=== PATIENT | male | born 1955 | race Caucasian/White ===

== ENCOUNTER 2020-07-09 00:30 | Emergency (ER) | payer MEDICARE, MEDICAID ==
[2020-07-09] MEDS ORDERED: Aspirin Chewable 81 MG TAB ONE (00:35)
[2020-07-09] MEDS ORDERED: Ondansetron PF 4 MG/2 ML Vial ONE (00:36)
[2020-07-09] MEDS ORDERED: Morphine 4 MG/ML VIAL ONE (00:36)
[2020-07-09 00:52] LABS: #Basophils 0.1 10x3/uL (0.0-0.2); #Eosinphils 0.8 10x3/uL (0.0-0.5); #Monocytes 0.8 10x3/uL (0.0-1.1); #Neutrophils 5.2 10x3/uL (1.5-8.4); %Basophils 0.8 % (0.0-2.0); %Eosinophils 8.6 % (0.0-6.0); %Lymphocytes 29.1 % (18.0-47.0); %Monocytes 7.8 % (0.0-10.0); %Neutrophils 52.8 % (40.0-75.0); Hemoglobin 14.7 g/dL (13.5-17.5); Mean Corpuscular HGB CONC 30.4 g/dL (32.0-36.0); Mean Corpuscular Volume 85.3 fl (81.2-95.1); Mean Platelet Volume 9.9 fl (7.4-10.4); Platelet Count 285 10x3/uL (150-450); RBC Distribution Width 15.8 % (11.5-14.5); Red Blood Cell (RBC) Count 5.66 10x6/uL (4.32-5.72); White Blood Cell (WBC) Count 9.8 10x3/uL (3.5-10.5)
[2020-07-09 01:01] LABS: ALT (SGPT) 27 U/L (8-55); AST (SGOT) 14 U/L (5-34); Alkaline Phosphatase 119 U/L (40-110); Anion Gap 17 mmol/L (10-20); BUN (Urea Nitrogen) 25 mg/dL (8.4-25.7); Bilirubin, Total 0.4 mg/dL (0.2-1.2); Calc. Creatinine Clearance 0 mL/min (70-130); Calcium 9.5 mg/dL (7.8-10.44); Carbon Dioxide 22 mmol/L (23-31); Chloride 104 mmol/L (98-107); Globulin 4.4 g/dL (2.4-3.5); Glucose 217 mg/dL (80-115); Magnesium 2.1 mg/dL (1.6-2.6); Potassium 4.3 mmol/L (3.5-5.1); Protein, Total 8.4 g/dL (5.8-8.1); Sodium 139 mmol/L (136-145)
[2020-07-09 01:24] LABS: CKMB 2.8 ng/mL (0-6.6)
[2020-07-09] MEDS ORDERED: Clopidogrel Bisulfate 75 MG TAB ONE (04:51)
[2020-07-09] MEDS ORDERED: Acetaminophen 500 MG TAB ONE (04:51)
== END 2020-07-09 04:58 | disposition home or self-care (01) ==
LOC: CSHERS 00:30
DX: R07.9 Chest pain, unspecified (principal); G89.29 Other chronic pain; Z76.0 Encounter for issue of repeat prescription; I48.91 Unspecified atrial fibrillation; I12.9 Hypertensive chronic kidney disease with stage 1 through stage 4 chronic kidney disease, or unspecified chronic kidney disease; E11.22 Type 2 diabetes mellitus with diabetic chronic kidney disease; N18.4 Chronic kidney disease, stage 4 (severe); Z79.84 Long term (current) use of oral hypoglycemic drugs; Z79.899 Other long term (current) drug therapy
CPT/HCPCS: 71045; 80053; 82553; 83735; 83880; 84484; 85025; 93005; 96374; 96375; J2270; J2405

== ENCOUNTER 2020-08-17 14:35 | Inpatient (IN) | payer MEDICARE, MEDICAID ==
[2020-08-17 15:01] LABS: #Eosinphils 0.4 10x3/uL (0.0-0.5); #Monocytes 0.4 10x3/uL (0.0-1.1); #Neutrophils 4.2 10x3/uL (1.5-8.4); %Basophils 0.6 % (0.0-2.0); %Eosinophils 5.8 % (0.0-6.0); %Lymphocytes 22.3 % (18.0-47.0); %Monocytes 5.5 % (0.0-10.0); %Neutrophils 64.7 % (40.0-75.0); Hemoglobin 12.9 g/dL (13.5-17.5); Mean Corpuscular HGB CONC 31.3 g/dL (32.0-36.0); Mean Corpuscular Hemoglobin 26.2 pg (27.0-33.0); Mean Corpuscular Volume 83.7 fl (81.2-95.1); Mean Platelet Volume 10.5 fl (7.4-10.4); Platelet Count 209 10x3/uL (150-450); Red Blood Cell (RBC) Count 4.92 10x6/uL (4.32-5.72); White Blood Cell (WBC) Count 6.4 10x3/uL (3.5-10.5)
[2020-08-17 15:15] LABS: ALT (SGPT) 19 U/L (8-55); AST (SGOT) 13 U/L (5-34); Albumin 3.6 g/dL (3.4-4.8); Alkaline Phosphatase 116 U/L (40-110); Anion Gap 15 mmol/L (10-20); BUN (Urea Nitrogen) 15 mg/dL (8.4-25.7); Bilirubin, Total 0.4 mg/dL (0.2-1.2); Calc. Creatinine Clearance 0 mL/min (70-130); Calcium 9.5 mg/dL (7.8-10.44); Carbon Dioxide 18 mmol/L (23-31); Chloride 105 mmol/L (98-107); Globulin 3.9 g/dL (2.4-3.5); Glucose 508 mg/dL (80-115); Lipase 15 U/L (8-78); Potassium 4.1 mmol/L (3.5-5.1); Protein, Total 7.5 g/dL (5.8-8.1); Sodium 134 mmol/L (136-145)
[2020-08-17 15:39] LABS: CKMB 2.5 ng/mL (0-6.6)
[2020-08-17] MEDS ORDERED: Nitroglycerin 2% Ointment 1 INCH/1 GM Packet ONE (16:21)
[2020-08-17] MEDS ORDERED: Dextrose 50% Abboject 50 ML SYRINGE SLOW IVP PRN (16:44)
[2020-08-17] MEDS ORDERED: Dextrose 5% in Water 1,000 ML IV PRN (16:44)
[2020-08-17] MEDS ORDERED: Nitroglycerin 0.4 MG TAB (25 Tab Bottle) SL PRN (16:54)
[2020-08-17] MEDS ORDERED: Insulin Regular 300 UNITS/3 ML VIAL ONE (17:08)
[2020-08-17 18:31] LABS: Troponin I 0.048 ng/mL (< 0.028)
[2020-08-17 20:48] LABS: Hemoglobin A1c 10.5 % (4.0-6.0)
[2020-08-17 21:41] VITALS: BMI 31.2
[2020-08-17 22:19] LABS: Troponin I 0.045 ng/mL (< 0.028)
[2020-08-17] MEDS ORDERED: Apixaban 5 MG TAB PO SCH (23:00)
[2020-08-17] MEDS: Nitroglycerin 2% Ointment 1 INCH/1 GM Packet TOP SCH (23:52)
[2020-08-18] MEDS ORDERED: HYDROcodone/Acetaminophen 5/325 mg Tablet PO SCH (00:15)
[2020-08-18] MEDS: Lactated Ringer's 1,000 ML IV SCH ×2 (00:42→11:15)
[2020-08-18] MEDS: HumaLOG 300 UNITS/3 ML VIAL SC PRN ×4 (00:43→20:48)
[2020-08-18 04:21] LABS: Cardiac Risk 5.2 (Less than 4.5)
[2020-08-18] MEDS: Nitroglycerin 2% Ointment 1 INCH/1 GM Packet TOP SCH ×2 (06:00→14:06)
[2020-08-18] MEDS: Famotidine 20 MG TAB PO SCH (08:42)
[2020-08-18] MEDS: NIFEdipine XL 60 MG TAB PO SCH (08:42)
[2020-08-18] MEDS: Atorvastatin Calcium 40 MG TAB PO SCH (08:43)
[2020-08-18] MEDS: Clopidogrel Bisulfate 75 MG TAB PO SCH (08:43)
[2020-08-18] MEDS: Apixaban 5 MG TAB PO SCH ×2 (08:43→20:36)
[2020-08-18] MEDS: Acetaminophen 325 MG TAB PO PRN ×2 (11:42→20:36)
[2020-08-18] MEDS: Ondansetron PF 4 MG/2 ML Vial IVP PRN (13:53)
[2020-08-18 15:40] LABS: SARS-CoV-2 PCR by NAA Not Detected (NotDetected)
[2020-08-19] MEDS: Lactated Ringer's 1,000 ML IV SCH ×2 (00:14→01:44)
[2020-08-19] MEDS ORDERED: traMADol HCl 50 MG TAB PO SCH (00:15)
[2020-08-19] MEDS ORDERED: Furosemide 20 MG/2 ML VIAL SLOW IVP SCH (01:30)
[2020-08-19 04:22] LABS: #Basophils 0.1 10x3/uL (0.0-0.2); #Eosinphils 0.5 10x3/uL (0.0-0.5); #Monocytes 0.4 10x3/uL (0.0-1.1); #Neutrophils 5.1 10x3/uL (1.5-8.4); %Basophils 0.7 % (0.0-2.0); %Eosinophils 5.7 % (0.0-6.0); %Lymphocytes 23.6 % (18.0-47.0); %Monocytes 4.8 % (0.0-10.0); Hemoglobin 13.1 g/dL (13.5-17.5); Mean Corpuscular HGB CONC 30.5 g/dL (32.0-36.0); Mean Corpuscular Hemoglobin 26.2 pg (27.0-33.0); Mean Platelet Volume 10.2 fl (7.4-10.4); Platelet Count 213 10x3/uL (150-450); RBC Distribution Width 16.5 % (11.5-14.5); White Blood Cell (WBC) Count 8.1 10x3/uL (3.5-10.5)
[2020-08-19 04:32] LABS: Anion Gap 14 mmol/L (10-20); BUN (Urea Nitrogen) 14 mg/dL (8.4-25.7); Calc. Creatinine Clearance 61 mL/min (70-130); Calcium 8.9 mg/dL (7.8-10.44); Carbon Dioxide 17 mmol/L (23-31); Chloride 109 mmol/L (98-107); Glucose 203 mg/dL (80-115); Potassium 3.9 mmol/L (3.5-5.1); Sodium 136 mmol/L (136-145)
[2020-08-19] MEDS: HumaLOG 300 UNITS/3 ML VIAL SC PRN ×4 (06:47→21:29)
[2020-08-19] MEDS: Atorvastatin Calcium 40 MG TAB PO SCH (10:04)
[2020-08-19] MEDS: NIFEdipine XL 60 MG TAB PO SCH (10:04)
[2020-08-19] MEDS: Apixaban 5 MG TAB PO SCH ×2 (10:04→21:28)
[2020-08-19] MEDS: Famotidine 20 MG TAB PO SCH (10:04)
[2020-08-19] MEDS: Clopidogrel Bisulfate 75 MG TAB PO SCH (10:05)
[2020-08-19] MEDS: Acetaminophen 325 MG TAB PO PRN (13:04)
[2020-08-19] MEDS: Ondansetron PF 4 MG/2 ML Vial IVP PRN (13:04)
[2020-08-19] MEDS ORDERED: SUMAtriptan Succinate 25 MG TAB PO SCH (15:45)
[2020-08-20] MEDS: HumaLOG 300 UNITS/3 ML VIAL SC PRN ×4 (04:50→22:34)
[2020-08-20] MEDS: Acetaminophen 325 MG TAB PO PRN (04:59)
[2020-08-20 06:18] LABS: #Eosinphils 0.4 10x3/uL (0.0-0.5); #Monocytes 0.4 10x3/uL (0.0-1.1); #Neutrophils 5.3 10x3/uL (1.5-8.4); %Basophils 0.5 % (0.0-2.0); %Eosinophils 4.7 % (0.0-6.0); %Lymphocytes 18.2 % (18.0-47.0); %Monocytes 5.4 % (0.0-10.0); %Neutrophils 70.1 % (40.0-75.0); Hemoglobin 13.6 g/dL (13.5-17.5); Mean Corpuscular HGB CONC 30.6 g/dL (32.0-36.0); Mean Corpuscular Hemoglobin 25.9 pg (27.0-33.0); Mean Corpuscular Volume 84.8 fl (81.2-95.1); Mean Platelet Volume 10.2 fl (7.4-10.4); Platelet Count 184 10x3/uL (150-450); Red Blood Cell (RBC) Count 5.25 10x6/uL (4.32-5.72); White Blood Cell (WBC) Count 7.6 10x3/uL (3.5-10.5)
[2020-08-20 06:35] LABS: Anion Gap 16 mmol/L (10-20); BUN (Urea Nitrogen) 16 mg/dL (8.4-25.7); Calc. Creatinine Clearance 59 mL/min (70-130); Calcium 8.8 mg/dL (7.8-10.44); Carbon Dioxide 17 mmol/L (23-31); Chloride 109 mmol/L (98-107); Glucose 227 mg/dL (80-115); Sodium 138 mmol/L (136-145)
[2020-08-20] MEDS: Clopidogrel Bisulfate 75 MG TAB PO SCH (09:34)
[2020-08-20] MEDS: NIFEdipine XL 60 MG TAB PO SCH (09:34)
[2020-08-20] MEDS: Apixaban 5 MG TAB PO SCH ×2 (09:34→20:19)
[2020-08-20] MEDS: Atorvastatin Calcium 40 MG TAB PO SCH (09:35)
[2020-08-20] MEDS: Famotidine 20 MG TAB PO SCH (09:35)
[2020-08-21] MEDS: Acetaminophen 325 MG TAB PO PRN (00:16)
[2020-08-21] MEDS: HumaLOG 300 UNITS/3 ML VIAL SC PRN ×2 (06:37→12:32)
[2020-08-21] MEDS: Apixaban 5 MG TAB PO SCH (08:55)
[2020-08-21] MEDS: Atorvastatin Calcium 40 MG TAB PO SCH (08:55)
[2020-08-21] MEDS: Clopidogrel Bisulfate 75 MG TAB PO SCH (08:56)
[2020-08-21] MEDS: Famotidine 20 MG TAB PO SCH (08:56)
[2020-08-21] MEDS: NIFEdipine XL 60 MG TAB PO SCH (08:56)
[2020-08-21 12:22] VITALS: BP 133/82; TEMP 97.5
== END 2020-08-21 13:02 | disposition home or self-care (01) | DRG 313 ==
LOC: CSHERS 14:35 → CSHTELE 20:24 → OBSVTOIN 08-18 16:00
PROVIDERS: ADMIT Student in an Organized Health Care Education/Training Program; ATTEND Family Medicine
DX: R07.9 Chest pain, unspecified (principal); I42.9 Cardiomyopathy, unspecified; Z20.822 Contact with and (suspected) exposure to COVID-19; I48.0 Paroxysmal atrial fibrillation; E78.5 Hyperlipidemia, unspecified; K21.9 Gastro-esophageal reflux disease without esophagitis; G47.33 Obstructive sleep apnea (adult) (pediatric); E66.9 Obesity, unspecified; F41.9 Anxiety disorder, unspecified; F32.9 Major depressive disorder, single episode, unspecified; E11.22 Type 2 diabetes mellitus with diabetic chronic kidney disease; E11.65 Type 2 diabetes mellitus with hyperglycemia; I12.9 Hypertensive chronic kidney disease with stage 1 through stage 4 chronic kidney disease, or unspecified chronic kidney disease; I25.10 Atherosclerotic heart disease of native coronary artery without angina pectoris; G44.40 Drug-induced headache, not elsewhere classified, not intractable; N18.30 Chronic kidney disease, stage 3 unspecified; T46.3X5A Adverse effect of coronary vasodilators, initial encounter; Y92.230 Patient room in hospital as the place of occurrence of the external cause; E87.6 Hypokalemia; K86.89 Other specified diseases of pancreas; Z59.0 Homelessness; Z88.8 Allergy status to other drugs, medicaments and biological substances; Z87.442 Personal history of urinary calculi; Z68.31 Body mass index [BMI] 31.0-31.9, adult; Z79.84 Long term (current) use of oral hypoglycemic drugs; Z79.899 Other long term (current) drug therapy; Z90.49 Acquired absence of other specified parts of digestive tract; Z79.01 Long term (current) use of anticoagulants; Z87.891 Personal history of nicotine dependence; Z91.018 Allergy to other foods
CPT/HCPCS: 36415; 36416; 71045; 74176; 80048; 80053; 80061; 82010; 82553; 83036; 83690; 83880; 84484; 85025; 87635; 93005; 96374; 96375; G0378; J1815; J1940; J2405; J7120; U0003; U0005

== ENCOUNTER 2021-02-11 09:21 | Observation (INO) | payer MEDICARE, MEDICAID ==
[2021-02-11] MEDS ORDERED: Aspirin 325 MG TAB ONE (09:58)
[2021-02-11] MEDS ORDERED: Nitroglycerin 2% Ointment 1 INCH/1 GM Packet ONE (09:58)
[2021-02-11 10:11] LABS: #Basophils 0.1 10x3/uL (0.0-0.2); #Eosinphils 0.4 10x3/uL (0.0-0.5); #Monocytes 0.4 10x3/uL (0.0-1.1); #Neutrophils 4.9 10x3/uL (1.5-8.4); %Eosinophils 5.5 % (0.0-6.0); %Lymphocytes 18.2 % (18.0-47.0); %Monocytes 5.8 % (0.0-10.0); %Neutrophils 68.8 % (40.0-75.0); Hemoglobin 12.5 g/dL (13.5-17.5); Mean Corpuscular HGB CONC 29.7 g/dL (32.0-36.0); Mean Corpuscular Hemoglobin 24.2 pg (27.0-33.0); Mean Corpuscular Volume 81.4 fl (81.2-95.1); Mean Platelet Volume 10.5 fl (7.4-10.4); Platelet Count 201 10x3/uL (150-450); RBC Distribution Width 17.9 % (11.5-14.5); Red Blood Cell (RBC) Count 5.17 10x6/uL (4.32-5.72); White Blood Cell (WBC) Count 7.1 10x3/uL (3.5-10.5)
[2021-02-11 10:30] LABS: ALT (SGPT) 26 U/L (8-55); AST (SGOT) 22 U/L (5-34); Albumin 3.7 g/dL (3.4-4.8); Alkaline Phosphatase 102 U/L (40-110); Anion Gap 18 mmol/L (10-20); BUN (Urea Nitrogen) 25 mg/dL (8.4-25.7); Bilirubin, Total 0.5 mg/dL (0.2-1.2); Calc. Creatinine Clearance 0 mL/min (70-130); Calcium 8.9 mg/dL (7.8-10.44); Carbon Dioxide 10 mmol/L (23-31); Chloride 111 mmol/L (98-107); Glucose 377 mg/dL (80-115); Potassium 3.7 mmol/L (3.5-5.1); Protein, Total 7.7 g/dL (5.8-8.1); Sodium 135 mmol/L (136-145)
[2021-02-11 10:58] LABS: Anisocytosis SLIGHT = 6-15 cells (100X) (0-5/hpf)
[2021-02-11 10:59] LABS: Hypochromia SLIGHT = 6-15 cells (100X) (0-5/hpf); Platelet Morphology Comment Appears Adequate
[2021-02-11 11:34] LABS: Bilirubin Neg (Negative); Blood, Urine 50 (Negative); Clarity Cloudy (Clear); Glucose, Urine (Dipstick) >=1000 mg/dL (Negative); Ketone, Urine Negative (Negative); Leukocyte 500 (Negative); Nitrite Negative (Negative); Protein, Urine (Dipstick) 30 mg/dl (Neg-Trace); Urobilinogen Normal mg/dL (Less than 2)
[2021-02-11 11:43] LABS: WBC/HPF Greater than 50 HPF (0-3)
[2021-02-11 11:45] LABS: RBC/HPF 0-3 HPF (0-3)
[2021-02-11 11:46] LABS: Bacteria/HPF Rare-Few HPF (None Seen); Squamous Epithelial 0-3 HPF (0-3); Yeast-Budding 1+ HPF (None Seen)
[2021-02-11 13:15] LABS: Troponin I 0.038 ng/mL (< 0.028)
[2021-02-11] MEDS ORDERED: Cefepime 1 GM VIAL ONE (13:19)
[2021-02-11] MEDS ORDERED: Nitroglycerin 0.4 MG TAB (25 Tab Bottle) SL PRN (14:07)
[2021-02-11] MEDS ORDERED: HYDROcodone/Acetaminophen 10/325 mg Tablet PO PRN (14:09)
[2021-02-11] MEDS ORDERED: HumaLOG 300 UNITS/3 ML VIAL SC PRN (14:09)
[2021-02-11] MEDS ORDERED: Dextrose 50% Abboject 50 ML SYRINGE SLOW IVP PRN (14:09)
[2021-02-11] MEDS ORDERED: Dextrose 5% in Water 1,000 ML IV PRN (14:09)
[2021-02-11] MEDS ORDERED: Ondansetron PF 4 MG/2 ML Vial IVP PRN (14:09)
[2021-02-11] MEDS ORDERED: Acetaminophen 325 MG TAB PO PRN (14:09)
[2021-02-11] MEDS ORDERED: Lactated Ringer's 1,000 ML IV SCH (14:30)
[2021-02-11] MEDS ORDERED: Sodium Bicarbonate 50 MEQ, Admixture Fee 1 EACH in Sodium Chloride 0.45% 1,000 ML IV SCH (18:00)
[2021-02-11 18:07] VITALS: BMI 25.8
[2021-02-11] MEDS: Lantus 1000 UNITS/10 ML VIAL SC SCH (19:45)
[2021-02-11] MEDS: Apixaban 5 MG TAB PO SCH (19:45)
[2021-02-11] MEDS ORDERED: Morphine 4 MG/ML VIAL SLOW IVP SCH (20:45)
[2021-02-11] MEDS ORDERED: Pantoprazole 40 MG VIAL IVP SCH (20:45)
[2021-02-12 00:55] LABS: SARS-CoV-2 NAA Rapid Test Not Detected (NotDetected)
[2021-02-12 04:55] LABS: #Basophils 0.1 10x3/uL (0.0-0.2); #Eosinphils 0.4 10x3/uL (0.0-0.5); #Monocytes 0.4 10x3/uL (0.0-1.1); #Neutrophils 4.3 10x3/uL (1.5-8.4); %Basophils 0.9 % (0.0-2.0); %Eosinophils 5.9 % (0.0-6.0); %Lymphocytes 20.6 % (18.0-47.0); %Monocytes 5.9 % (0.0-10.0); %Neutrophils 65.9 % (40.0-75.0); Mean Corpuscular HGB CONC 30.1 g/dL (32.0-36.0); Mean Corpuscular Hemoglobin 24.6 pg (27.0-33.0); Mean Corpuscular Volume 81.7 fl (81.2-95.1); Mean Platelet Volume 10.2 fl (7.4-10.4); Platelet Count 189 10x3/uL (150-450); RBC Distribution Width 18.5 % (11.5-14.5); Red Blood Cell (RBC) Count 4.48 10x6/uL (4.32-5.72); White Blood Cell (WBC) Count 6.6 10x3/uL (3.5-10.5)
[2021-02-12 05:09] LABS: Anion Gap 11 mmol/L (10-20); BUN (Urea Nitrogen) 20 mg/dL (8.4-25.7); Calc. Creatinine Clearance 54 mL/min (70-130); Calcium 8.6 mg/dL (7.8-10.44); Carbon Dioxide 19 mmol/L (23-31); Chloride 114 mmol/L (98-107); Glucose 194 mg/dL (80-115); Potassium 3.6 mmol/L (3.5-5.1); Sodium 140 mmol/L (136-145)
[2021-02-12] MEDS ORDERED: Sodium Bicarbonate 100 MEQ, Admixture Fee 1 EACH in Dextrose 5% in Water 1,000 ML IV SCH (08:00)
[2021-02-12] MEDS: Atorvastatin Calcium 40 MG TAB PO SCH (08:46)
[2021-02-12] MEDS: Famotidine 20 MG TAB PO SCH (08:46)
[2021-02-12] MEDS: metFORMIN XR 500 MG TAB PO SCH (08:46)
[2021-02-12] MEDS: Apixaban 5 MG TAB PO SCH ×2 (08:46→19:56)
[2021-02-12] MEDS: Clopidogrel Bisulfate 75 MG TAB PO SCH (08:46)
[2021-02-12] MEDS: Lantus 1000 UNITS/10 ML VIAL SC SCH ×2 (08:46→20:17)
[2021-02-12] MEDS ORDERED: FLU VACC QS2021-22(65YR UP)/PF 240 MCG/0.7 ML SYRINGE IM ONE (09:00)
[2021-02-12 14:33] LABS: Hemoglobin A1c 9.3 % (4.0-6.0)
[2021-02-13 05:07] LABS: ALT (SGPT) 22 U/L (8-55); AST (SGOT) 18 U/L (5-34); Albumin 3.2 g/dL (3.4-4.8); Alkaline Phosphatase 80 U/L (40-110); Anion Gap 12 mmol/L (10-20); BUN (Urea Nitrogen) 21 mg/dL (8.4-25.7); Calc. Creatinine Clearance 51 mL/min (70-130); Calcium 8.4 mg/dL (7.8-10.44); Carbon Dioxide 19 mmol/L (23-31); Cardiac Risk 8.2 (Less than 4.5); Chloride 115 mmol/L (98-107); Cholesterol 164 mg/dl (< 200 Desired); Globulin 3.4 g/dL (2.4-3.5); Glucose 154 mg/dL (80-115); HDL Cholesterol 20 mg/dL (>60 Neg Risk); LDL Cholesterol, Calculated 87 mg/dL; Protein, Total 6.6 g/dL (5.8-8.1); Sodium 142 mmol/L (136-145); Triglycerides 287 mg/dL (Less than 150)
[2021-02-13 05:16] LABS: Bilirubin, Total 0.5 mg/dL (0.2-1.2)
[2021-02-13 06:14] LABS: #Basophils 0.1 10x3/uL (0.0-0.2); #Eosinphils 0.3 10x3/uL (0.0-0.5); #Monocytes 0.5 10x3/uL (0.0-1.1); #Neutrophils 3.7 10x3/uL (1.5-8.4); %Basophils 0.9 % (0.0-2.0); %Eosinophils 5.6 % (0.0-6.0); %Lymphocytes 21.3 % (18.0-47.0); %Monocytes 7.8 % (0.0-10.0); %Neutrophils 63.4 % (40.0-75.0); Hemoglobin 11.3 g/dL (13.5-17.5); Mean Corpuscular HGB CONC 29.7 g/dL (32.0-36.0); Mean Corpuscular Hemoglobin 24.6 pg (27.0-33.0); Mean Corpuscular Volume 82.6 fl (81.2-95.1); Mean Platelet Volume 9.8 fl (7.4-10.4); Platelet Count 186 10x3/uL (150-450); RBC Distribution Width 18.8 % (11.5-14.5); White Blood Cell (WBC) Count 5.9 10x3/uL (3.5-10.5)
[2021-02-13 06:22] LABS: INR-International Normal Ratio 1.1; PTT 27.1 sec (22.0-33.0)
[2021-02-13 06:35] LABS: Anisocytosis SLIGHT = 6-15 cells (100X) (0-5/hpf); Polychromasia SLIGHT = 2-3 cells (100X) (0-2/hpf)
[2021-02-13 06:36] LABS: Platelet Morphology Comment Appears Adequate
[2021-02-13] MEDS: Apixaban 5 MG TAB PO SCH (07:26)
[2021-02-13] MEDS: metFORMIN XR 500 MG TAB PO SCH (07:26)
[2021-02-13] MEDS: Lantus 1000 UNITS/10 ML VIAL SC SCH (07:26)
[2021-02-13] MEDS: Famotidine 20 MG TAB PO SCH (07:40)
[2021-02-13] MEDS: Clopidogrel Bisulfate 75 MG TAB PO SCH (07:40)
[2021-02-13] MEDS: Atorvastatin Calcium 40 MG TAB PO SCH (07:40)
[2021-02-13] MEDS: Communication Order-Pharmacy FS SCH ×2 (07:42→14:58)
[2021-02-13] MEDS ORDERED: Lidocaine 1% PF 5 ML VIAL ONE (07:50)
[2021-02-13] MEDS ORDERED: Heparin 10,000 UNITS/ 10 ML VIAL ONE (07:51)
[2021-02-13] MEDS ORDERED: Nitroglycerin 50 MG/250 ML BOT 250 ML ONE (07:51)
[2021-02-13] MEDS ORDERED: Verapamil 5 MG/2 ML VIAL ONE (07:51)
[2021-02-13] MEDS ORDERED: Adenosine 6 MG/2 ML VIAL ONE (07:51)
[2021-02-13] MEDS ORDERED: Bivalirudin 250 MG VIAL ONE (07:52)
[2021-02-13] MEDS ORDERED: Sodium Chloride 0.9% 1,000 ML ONE (07:52)
[2021-02-13] MEDS ORDERED: Acetylcysteine 20% 200 MG/ML 30 ML VIAL PO SCH (08:16)
[2021-02-13] MEDS ORDERED: Sodium Chloride 0.9% 1,000 ML IV SCH (08:30)
[2021-02-13] MEDS ORDERED: Acetylcysteine 800 MG/4 ML VIAL ONE (08:35)
[2021-02-13] MEDS ORDERED: Fentanyl 100 MCG/2 ML VIAL ONE (08:43)
[2021-02-13] MEDS ORDERED: Midazolam HCl 5 mg/5 ml Vial ONE (08:43)
[2021-02-13] MEDS ORDERED: Sodium Chloride 0.9% 200 ML IV PRN (09:18)
[2021-02-13] MEDS ORDERED: Acetaminophen/Codeine 30-300mg Tablet PO PRN ×2 (09:18)
[2021-02-13] MEDS ORDERED: Nitroglycerin 0.4 MG TAB (25 Tab Bottle) SL PRN (09:18)
[2021-02-13 15:40] VITALS: BP 130/70; TEMP 98
[2021-02-18] MEDS ORDERED: Furosemide 20 MG TAB PO SCH (09:00)
== END 2021-02-13 15:26 | disposition home or self-care (01) ==
LOC: CSHERS 09:21 → CSHTELE 14:08 → INTOOBSV 14:08 → CSHTELE 17:40 → UNDOADMIN 17:40
PROVIDERS: ADMIT Internal Medicine; ATTEND Physician Assistant Medical
DX: R07.9 Chest pain, unspecified (principal); I42.2 Other hypertrophic cardiomyopathy; I20.1 Angina pectoris with documented spasm; E11.22 Type 2 diabetes mellitus with diabetic chronic kidney disease; I12.9 Hypertensive chronic kidney disease with stage 1 through stage 4 chronic kidney disease, or unspecified chronic kidney disease; N18.30 Chronic kidney disease, stage 3 unspecified; Z79.899 Other long term (current) drug therapy; I48.91 Unspecified atrial fibrillation; E66.9 Obesity, unspecified; E78.5 Hyperlipidemia, unspecified; G47.33 Obstructive sleep apnea (adult) (pediatric); Z87.891 Personal history of nicotine dependence; Z79.84 Long term (current) use of oral hypoglycemic drugs; Z90.49 Acquired absence of other specified parts of digestive tract; I48.0 Paroxysmal atrial fibrillation; Z20.822 Contact with and (suspected) exposure to COVID-19
CPT/HCPCS: 71045; 80048; 80053 ×2; 80061; 82962 ×3; 83036; 84484 ×3; 85025 ×3; 85379; 85610; 85730; 87086; 93005; 93458; 94760 ×2; 96374; 96375; 99285; G0378 ×4; U0002; 36415; 36416; 81003; 81015; 93010; 99152; C9113; J0132; J0153; J0583; J0692; J1644; J1815; J2250; J2270; J3010; J7050; J7120

== ENCOUNTER 2021-04-07 21:56 | Observation (INO) | payer MEDICARE, MEDICAID ==
[2021-04-07 22:41] LABS: #Basophils 0.1 10x3/uL (0.0-0.2); #Eosinphils 0.4 10x3/uL (0.0-0.5); #Monocytes 0.4 10x3/uL (0.0-1.1); #Neutrophils 4.1 10x3/uL (1.5-8.4); %Basophils 0.8 % (0.0-2.0); %Eosinophils 5.6 % (0.0-6.0); %Monocytes 5.9 % (0.0-10.0); %Neutrophils 63.1 % (40.0-75.0); Hemoglobin 11.9 g/dL (13.5-17.5); Mean Corpuscular HGB CONC 30.6 g/dL (32.0-36.0); Mean Corpuscular Volume 81.7 fl (81.2-95.1); Mean Platelet Volume 10.2 fl (7.4-10.4); Platelet Count 216 10x3/uL (150-450); RBC Distribution Width 16.4 % (11.5-14.5); Red Blood Cell (RBC) Count 4.76 10x6/uL (4.32-5.72); White Blood Cell (WBC) Count 6.5 10x3/uL (3.5-10.5)
[2021-04-07 22:57] LABS: ALT (SGPT) 18 U/L (8-55); AST (SGOT) 10 U/L (5-34); Albumin 3.5 g/dL (3.4-4.8); Alkaline Phosphatase 146 U/L (40-110); Anion Gap 14 mmol/L (10-20); BUN (Urea Nitrogen) 17 mg/dL (8.4-25.7); Bilirubin, Total 0.2 mg/dL (0.2-1.2); Calc. Creatinine Clearance 0 mL/min (70-130); Calcium 9.1 mg/dL (7.8-10.44); Carbon Dioxide 20 mmol/L (23-31); Chloride 106 mmol/L (98-107); Globulin 4.2 g/dL (2.4-3.5); Magnesium 1.8 mg/dL (1.6-2.6); Potassium 4.2 mmol/L (3.5-5.1); Protein, Total 7.7 g/dL (5.8-8.1); Sodium 136 mmol/L (136-145)
[2021-04-07 23:11] LABS: Glucose 622 mg/dL (80-115)
[2021-04-07 23:20] LABS: CKMB 4.4 ng/mL (0-6.6)
[2021-04-08] MEDS ORDERED: Insulin Regular 300 UNITS/3 ML VIAL ONE (00:41)
[2021-04-08] MEDS ORDERED: Aspirin 325 MG TAB ONE (00:41)
[2021-04-08 01:01] LABS: Troponin I 0.044 ng/mL (< 0.028)
[2021-04-08] MEDS ORDERED: Nitroglycerin 2% Ointment 1 INCH/1 GM Packet ONE (01:32)
[2021-04-08] MEDS ORDERED: HYDROcodone/Acetaminophen 5/325 mg Tablet PO PRN (01:57)
[2021-04-08] MEDS ORDERED: Senokot S 8.6-50 MG TAB PO PRN (01:57)
[2021-04-08] MEDS ORDERED: Ondansetron PF 4 MG/2 ML Vial IVP PRN (01:57)
[2021-04-08] MEDS ORDERED: Calcium Carbonate 500 MG ChewTAB PO PRN (01:57)
[2021-04-08] MEDS ORDERED: Dextrose 50% Abboject 50 ML SYRINGE SLOW IVP PRN (01:57)
[2021-04-08] MEDS ORDERED: Zolpidem Tartrate 5 MG TAB PO PRN (01:57)
[2021-04-08] MEDS ORDERED: Acetaminophen 325 MG TAB PO PRN (01:57)
[2021-04-08] MEDS ORDERED: Nitroglycerin 0.4 MG TAB (25 Tab Bottle) SL PRN (01:57)
[2021-04-08] MEDS ORDERED: Dextrose 5% in Water 1,000 ML IV PRN (01:57)
[2021-04-08 04:25] LABS: SARS-CoV-2 NAA Rapid Test Not Detected (NotDetected)
[2021-04-08 04:37] VITALS: BMI 31.3
[2021-04-08 06:07] LABS: Cardiac Risk 6.5 (Less than 4.5)
[2021-04-08] MEDS ORDERED: Nitroglycerin 0.4 MG TAB (25 Tab Bottle) SL SCH (07:00)
[2021-04-08] MEDS ORDERED: Calcium Carbonate 500 MG ChewTAB PO SCH (07:00)
[2021-04-08 09:52] LABS: Anion Gap 12 mmol/L (10-20); BUN (Urea Nitrogen) 19 mg/dL (8.4-25.7); Calc. Creatinine Clearance 58 mL/min (70-130); Calcium 9.1 mg/dL (7.8-10.44); Carbon Dioxide 22 mmol/L (23-31); Chloride 110 mmol/L (98-107); Glucose 287 mg/dL (80-115); Potassium 3.9 mmol/L (3.5-5.1); Sodium 140 mmol/L (136-145)
[2021-04-08 09:56] LABS: Troponin I 0.044 ng/mL (< 0.028)
[2021-04-08] MEDS ORDERED: Morphine 4 MG/ML VIAL SLOW IVP SCH (10:15)
[2021-04-08] MEDS: Clopidogrel Bisulfate 75 MG TAB PO SCH (10:35)
[2021-04-08] MEDS: Apixaban 5 MG TAB PO SCH ×2 (10:35→20:46)
[2021-04-08] MEDS: Atorvastatin Calcium 40 MG TAB PO SCH (10:35)
[2021-04-08] MEDS: Lantus 1000 UNITS/10 ML VIAL SC SCH ×2 (10:35→20:45)
[2021-04-08] MEDS: metFORMIN 500 MG TAB PO SCH ×2 (10:36→20:46)
[2021-04-08 12:30] LABS: Hemoglobin A1c 10.3 % (4.0-6.0)
[2021-04-08] MEDS: HumaLOG 300 UNITS/3 ML VIAL SC PRN ×2 (12:50→17:15)
[2021-04-08 13:01] LABS: CKMB 4.6 ng/mL (0-6.6)
[2021-04-09] MEDS: Atorvastatin Calcium 40 MG TAB PO SCH (09:40)
[2021-04-09] MEDS: Apixaban 5 MG TAB PO SCH (09:41)
[2021-04-09] MEDS: Lantus 1000 UNITS/10 ML VIAL SC SCH (09:41)
[2021-04-09] MEDS: Clopidogrel Bisulfate 75 MG TAB PO SCH (09:41)
[2021-04-09] MEDS: metFORMIN 500 MG TAB PO SCH (09:41)
[2021-04-09 12:34] VITALS: BP 135/74; TEMP 97.5
[2021-04-09] MEDS: HumaLOG 300 UNITS/3 ML VIAL SC PRN (13:22)
== END 2021-04-09 14:15 | disposition home or self-care (01) ==
LOC: CSHERS 21:56 → CSHTELE 04-08 04:18
PROVIDERS: ADMIT Student in an Organized Health Care Education/Training Program; ATTEND Nurse Practitioner Family
DX: I25.111 Atherosclerotic heart disease of native coronary artery with angina pectoris with documented spasm (principal); R77.8 Other specified abnormalities of plasma proteins; E11.22 Type 2 diabetes mellitus with diabetic chronic kidney disease; I12.9 Hypertensive chronic kidney disease with stage 1 through stage 4 chronic kidney disease, or unspecified chronic kidney disease; N18.30 Chronic kidney disease, stage 3 unspecified; E78.5 Hyperlipidemia, unspecified; Z79.899 Other long term (current) drug therapy; Z79.01 Long term (current) use of anticoagulants; I48.0 Paroxysmal atrial fibrillation; Z79.4 Long term (current) use of insulin; I42.2 Other hypertrophic cardiomyopathy; Z87.891 Personal history of nicotine dependence; Q24.5 Malformation of coronary vessels; Z79.02 Long term (current) use of antithrombotics/antiplatelets; Z20.822 Contact with and (suspected) exposure to COVID-19
CPT/HCPCS: 71045; 80048; 80053; 80061; 82553 ×2; 82962 ×2; 83036; 83735; 84484 ×3; 85025; 93005; 96374; 99285; G0378 ×3; U0002; 36415; 36416; J1815; J2270

== ENCOUNTER 2021-04-21 17:32 | Emergency (ER) | payer MEDICARE, OTHER ==
[2021-04-21 18:44] LABS: #Eosinphils 0.3 10x3/uL (0.0-0.5); #Monocytes 0.5 10x3/uL (0.0-1.1); #Neutrophils 3.4 10x3/uL (1.5-8.4); %Basophils 0.7 % (0.0-2.0); %Eosinophils 4.9 % (0.0-6.0); %Lymphocytes 27.1 % (18.0-47.0); %Monocytes 7.8 % (0.0-10.0); %Neutrophils 58.8 % (40.0-75.0); Mean Corpuscular HGB CONC 28.7 g/dL (32.0-36.0); Mean Corpuscular Hemoglobin 24.7 pg (27.0-33.0); Mean Corpuscular Volume 85.9 fl (81.2-95.1); Platelet Count 217 10x3/uL (150-450); RBC Distribution Width 16.4 % (11.5-14.5); Red Blood Cell (RBC) Count 4.05 10x6/uL (4.32-5.72); White Blood Cell (WBC) Count 5.8 10x3/uL (3.5-10.5)
[2021-04-21] MEDS ORDERED: Nitroglycerin 2% Ointment 1 INCH/1 GM Packet ONE (18:52)
[2021-04-21] MEDS ORDERED: Ketorolac Tromethamine 30 MG/ML VIAL ONE (18:53)
[2021-04-21 18:58] LABS: ALT (SGPT) 17 U/L (8-55); AST (SGOT) 15 U/L (5-34); Albumin 3.4 g/dL (3.4-4.8); Alkaline Phosphatase 115 U/L (40-110); Anion Gap 12 mmol/L (10-20); BUN (Urea Nitrogen) 17 mg/dL (8.4-25.7); Bilirubin, Total 0.4 mg/dL (0.2-1.2); Calc. Creatinine Clearance 0 mL/min (70-130); Calcium 8.6 mg/dL (7.8-10.44); Carbon Dioxide 20 mmol/L (23-31); Chloride 114 mmol/L (98-107); Globulin 3.5 g/dL (2.4-3.5); Glucose 118 mg/dL (80-115); Potassium 3.9 mmol/L (3.5-5.1); Protein, Total 6.9 g/dL (5.8-8.1); Sodium 142 mmol/L (136-145)
[2021-04-21 19:03] LABS: Anisocytosis SLIGHT = 6-15 cells (100X) (0-5/hpf); Hypochromia SLIGHT = 6-15 cells (100X) (0-5/hpf); Ovalocytes SLIGHT = 2-5 cells (100X) (0-1/hpf); Platelet Morphology Comment Appears Adequate
[2021-04-21 19:34] LABS: CKMB 3.2 ng/mL (0-6.6)
[2021-04-21 21:46] LABS: Troponin I 0.953 ng/mL (< 0.028)
== END 2021-04-21 22:12 | disposition home or self-care (01) ==
LOC: CSHERS 17:32
DX: R07.9 Chest pain, unspecified (principal); I48.91 Unspecified atrial fibrillation; I13.10 Hypertensive heart and chronic kidney disease without heart failure, with stage 1 through stage 4 chronic kidney disease, or unspecified chronic kidney disease; E11.22 Type 2 diabetes mellitus with diabetic chronic kidney disease; N18.30 Chronic kidney disease, stage 3 unspecified; I25.2 Old myocardial infarction; Z87.19 Personal history of other diseases of the digestive system; Z87.891 Personal history of nicotine dependence; Z79.899 Other long term (current) drug therapy
CPT/HCPCS: 71045; 80053; 82553; 83880; 84484; 85025; 93005; 96374; J1885

== ENCOUNTER 2021-05-14 15:18 | Emergency (ER) | payer MEDICARE ==
[2021-05-14 15:56] LABS: #Basophils 0.1 10x3/uL (0.0-0.2); #Eosinphils 0.5 10x3/uL (0.0-0.5); #Monocytes 0.4 10x3/uL (0.0-1.1); #Neutrophils 3.5 10x3/uL (1.5-8.4); %Basophils 0.8 % (0.0-2.0); %Eosinophils 8.3 % (0.0-6.0); %Lymphocytes 26.4 % (18.0-47.0); %Monocytes 6.2 % (0.0-10.0); %Neutrophils 57.6 % (40.0-75.0); Hemoglobin 10.8 g/dL (13.5-17.5); Mean Corpuscular HGB CONC 28.6 g/dL (32.0-36.0); Mean Corpuscular Hemoglobin 23.4 pg (27.0-33.0); Mean Corpuscular Volume 81.8 fl (81.2-95.1); Mean Platelet Volume 9.8 fl (7.4-10.4); Platelet Count 245 10x3/uL (150-450); RBC Distribution Width 15.2 % (11.5-14.5); Red Blood Cell (RBC) Count 4.62 10x6/uL (4.32-5.72); White Blood Cell (WBC) Count 6.1 10x3/uL (3.5-10.5)
[2021-05-14 16:14] LABS: ALT (SGPT) 19 U/L (8-55); AST (SGOT) 12 U/L (5-34); Albumin 3.6 g/dL (3.4-4.8); Alkaline Phosphatase 125 U/L (40-110); Anion Gap 13 mmol/L (10-20); BUN (Urea Nitrogen) 20 mg/dL (8.4-25.7); Bilirubin, Total 0.3 mg/dL (0.2-1.2); Calc. Creatinine Clearance 0 mL/min (70-130); Calcium 8.9 mg/dL (7.8-10.44); Carbon Dioxide 18 mmol/L (23-31); Chloride 110 mmol/L (98-107); Globulin 4.1 g/dL (2.4-3.5); Glucose 342 mg/dL (80-115); Lipase 10 U/L (8-78); Potassium 3.9 mmol/L (3.5-5.1); Protein, Total 7.7 g/dL (5.8-8.1); Sodium 137 mmol/L (136-145)
[2021-05-14 16:22] LABS: Anisocytosis SLIGHT = 6-15 cells (100X) (0-5/hpf); Hypochromia SLIGHT = 6-15 cells (100X) (0-5/hpf); Poikilocytosis SLIGHT = 6-15 cells (100X) (0-5/hpf)
[2021-05-14 16:23] LABS: Platelet Morphology Comment Appears Adequate
[2021-05-14 16:37] LABS: CKMB 3.7 ng/mL (0-6.6)
[2021-05-14] MEDS ORDERED: Aspirin Chewable 81 MG TAB ONE (17:39)
[2021-05-14] MEDS ORDERED: Nitroglycerin 0.4 MG TAB 1 EACH ONE (17:40)
[2021-05-14] MEDS ORDERED: Nitroglycerin 2% Ointment 1 INCH/1 GM Packet ONE ×2 (17:40)
== END 2021-05-14 19:37 | disposition home or self-care (01) ==
LOC: CSHERS 15:18
DX: R07.9 Chest pain, unspecified (principal); I20.9 Angina pectoris, unspecified; I25.2 Old myocardial infarction; I48.91 Unspecified atrial fibrillation; I12.9 Hypertensive chronic kidney disease with stage 1 through stage 4 chronic kidney disease, or unspecified chronic kidney disease; N18.30 Chronic kidney disease, stage 3 unspecified; E11.22 Type 2 diabetes mellitus with diabetic chronic kidney disease
CPT/HCPCS: 71045; 80053; 82553; 83690; 84484; 85025; 93005; 93010

== ENCOUNTER 2021-10-19 19:42 | Observation (INO) | payer OTHER, MEDICAID ==
[2021-10-19] MEDS ORDERED: Dextrose 5% in Water 1,000 ML IV PRN (19:48)
[2021-10-19] MEDS ORDERED: Guaifenesin DM 100-10/5 ML UDCUP PO PRN (19:48)
[2021-10-19] MEDS ORDERED: Dextrose 50% Abboject 50 ML SYRINGE SLOW IVP PRN (19:48)
[2021-10-19] MEDS ORDERED: Zolpidem Tartrate 5 MG TAB PO PRN (19:48)
[2021-10-19] MEDS ORDERED: Senokot S 8.6-50 MG TAB PO PRN (19:48)
[2021-10-19] MEDS ORDERED: HumaLOG 300 UNITS/3 ML VIAL SC PRN (19:48)
[2021-10-19] MEDS ORDERED: Calcium Carbonate 500 MG ChewTAB PO PRN (19:48)
[2021-10-19] MEDS ORDERED: Lactated Ringer's 500 ML IV SCH ×2 (20:00→21:00)
[2021-10-19] MEDS ORDERED: Famotidine/PF 20 mg/2ml Vial SLOW IVP SCH (20:00)
[2021-10-19 20:16] VITALS: BMI 27.6
[2021-10-19] MEDS: Apixaban 5 MG TAB PO SCH (20:51)
[2021-10-19 22:39] LABS: CKMB 4.6 ng/mL (0-6.6)
[2021-10-19 23:43] LABS: Bilirubin Neg (Negative); Blood, Urine 10 (Negative); Clarity Clear (Clear); Glucose, Urine (Dipstick) Normal (Negative); Ketone, Urine Negative (Negative); Leukocyte 25 (Negative); Nitrite Negative (Negative); Protein, Urine (Dipstick) 15 mg/dl (Neg-Trace); Specific Gravity, Urine 1.015 (1.002-1.036); Urobilinogen Normal mg/dL (Less than 2)
[2021-10-19 23:53] LABS: Bacteria/HPF None Seen HPF (None Seen); RBC/HPF 0-3 HPF (0-3); Squamous Epithelial 0-3 HPF (0-3)
[2021-10-20] MEDS: Nitroglycerin 0.4 MG TAB (25 Tab Bottle) SL PRN (00:08)
[2021-10-20] MEDS: Acetaminophen 325 MG TAB PO PRN (00:09)
[2021-10-20 01:38] LABS: SARS-CoV-2 NAA Rapid Test Not Detected (NotDetected)
[2021-10-20] MEDS ORDERED: cefTRIAXone\\ROCEPHIN 1 GM in Sodium Chloride 0.9% 100 ML IVPB SCH (02:00)
[2021-10-20] MEDS: cefTRIAXone\\ROCEPHIN 1 GM in Sodium Chloride 0.9% 100 ML IVPB SCH (05:00)
[2021-10-20 05:41] LABS: Anion Gap 10 mmol/L (10-20); BUN (Urea Nitrogen) 18 mg/dL (8.4-25.7); Calc. Creatinine Clearance 64 mL/min (70-130); Calcium 8.9 mg/dL (7.8-10.44); Carbon Dioxide 18 mmol/L (23-31); Chloride 118 mmol/L (98-107); Estimated GFR 61; Glucose 111 mg/dL (80-115); Potassium 3.6 mmol/L (3.5-5.1); Sodium 142 mmol/L (136-145)
[2021-10-20 06:08] LABS: CKMB 4.5 ng/mL (0-6.6)
[2021-10-20] MEDS: Atorvastatin Calcium 40 MG TAB PO SCH (09:11)
[2021-10-20] MEDS: Amlodipine 5 MG TAB PO SCH (09:11)
[2021-10-20] MEDS: Apixaban 5 MG TAB PO SCH ×2 (09:11→21:44)
[2021-10-20] MEDS: Clopidogrel Bisulfate 75 MG TAB PO SCH (09:11)
[2021-10-20] MEDS: Melatonin 3 MG TAB PO PRN (21:43)
[2021-10-21] MEDS: cefTRIAXone\\ROCEPHIN 1 GM in Sodium Chloride 0.9% 100 ML IVPB SCH (05:09)
[2021-10-21] MEDS: Apixaban 5 MG TAB PO SCH ×2 (09:32→20:51)
[2021-10-21] MEDS: Amlodipine 5 MG TAB PO SCH (09:32)
[2021-10-21] MEDS: Atorvastatin Calcium 40 MG TAB PO SCH (09:32)
[2021-10-21] MEDS: Clopidogrel Bisulfate 75 MG TAB PO SCH (09:33)
[2021-10-21] MEDS: Nitroglycerin 0.4 MG TAB (25 Tab Bottle) SL PRN ×2 (15:27→22:49)
[2021-10-21] MEDS ORDERED: traMADol HCl 50 MG TAB PO SCH (20:00)
[2021-10-21] MEDS: Melatonin 3 MG TAB PO PRN (20:56)
[2021-10-22] MEDS: cefTRIAXone\\ROCEPHIN 1 GM in Sodium Chloride 0.9% 100 ML IVPB SCH (04:17)
[2021-10-22] MEDS: Apixaban 5 MG TAB PO SCH ×2 (10:47→20:15)
[2021-10-22] MEDS: Atorvastatin Calcium 40 MG TAB PO SCH (10:47)
[2021-10-22] MEDS: Clopidogrel Bisulfate 75 MG TAB PO SCH (10:49)
[2021-10-22] MEDS: Amlodipine 5 MG TAB PO SCH (10:49)
[2021-10-22] MEDS: Acetaminophen 325 MG TAB PO PRN (10:50)
[2021-10-23] MEDS: cefTRIAXone\\ROCEPHIN 1 GM in Sodium Chloride 0.9% 100 ML IVPB SCH (04:06)
[2021-10-23] MEDS: Atorvastatin Calcium 40 MG TAB PO SCH (08:30)
[2021-10-23] MEDS: Apixaban 5 MG TAB PO SCH ×2 (08:30→20:47)
[2021-10-23] MEDS: Clopidogrel Bisulfate 75 MG TAB PO SCH (08:30)
[2021-10-23] MEDS: Amlodipine 5 MG TAB PO SCH (08:32)
[2021-10-23] MEDS ORDERED: Ondansetron PF 4 MG/2 ML Vial IVP SCH (20:45)
[2021-10-24] MEDS: Atorvastatin Calcium 40 MG TAB PO SCH (08:40)
[2021-10-24] MEDS: Amlodipine 5 MG TAB PO SCH (08:41)
[2021-10-24] MEDS: Apixaban 5 MG TAB PO SCH (08:41)
[2021-10-24] MEDS: Clopidogrel Bisulfate 75 MG TAB PO SCH (08:44)
[2021-10-24 12:21] VITALS: BP 110/55; TEMP 97.1
== END 2021-10-24 13:53 | disposition home or self-care (01) ==
LOC: CSHTELE 19:42
PROVIDERS: ADMIT Internal Medicine; ATTEND Internal Medicine
DX: R77.8 Other specified abnormalities of plasma proteins (principal); T67.8XXA Other effects of heat and light, initial encounter; R53.1 Weakness; R07.89 Other chest pain; I12.9 Hypertensive chronic kidney disease with stage 1 through stage 4 chronic kidney disease, or unspecified chronic kidney disease; E11.22 Type 2 diabetes mellitus with diabetic chronic kidney disease; N18.32 Chronic kidney disease, stage 3b; N17.9 Acute kidney failure, unspecified; E86.0 Dehydration; E78.2 Mixed hyperlipidemia; Q24.5 Malformation of coronary vessels; E11.65 Type 2 diabetes mellitus with hyperglycemia; E11.10 Type 2 diabetes mellitus with ketoacidosis without coma; I48.0 Paroxysmal atrial fibrillation; I42.2 Other hypertrophic cardiomyopathy; I25.10 Atherosclerotic heart disease of native coronary artery without angina pectoris; K21.9 Gastro-esophageal reflux disease without esophagitis; I25.111 Atherosclerotic heart disease of native coronary artery with angina pectoris with documented spasm; K21.00 Gastro-esophageal reflux disease with esophagitis, without bleeding; Z87.11 Personal history of peptic ulcer disease; Z87.891 Personal history of nicotine dependence; Z59.01 Sheltered homelessness; Z79.01 Long term (current) use of anticoagulants; Z79.02 Long term (current) use of antithrombotics/antiplatelets; Z79.84 Long term (current) use of oral hypoglycemic drugs; Z79.899 Other long term (current) drug therapy; Z88.6 Allergy status to analgesic agent; Z20.822 Contact with and (suspected) exposure to COVID-19
CPT/HCPCS: 80048; 81001; 82550 ×2; 82553 ×2; 82962 ×6; 84484 ×5; 87086; 93005; 96374; 96375 ×2; 96376 ×3; G0378 ×6; U0002; 36415; 36416; 93010; J0696; J1815; J2405; J3490; J7120; S0028

== ENCOUNTER 2021-12-14 23:44 | Inpatient (IN) | payer MEDICARE, OTHER ==
[2021-12-15 00:19] VITALS: BMI 27.3
[2021-12-15] MEDS ORDERED: Nitroglycerin 0.4 MG TAB (25 Tab Bottle) SL PRN (00:45)
[2021-12-15] MEDS ORDERED: Metoprolol Tartrate 5 MG/5 ML VIAL IVP SCH (01:00)
[2021-12-15] MEDS: Morphine 2 MG/ML VIAL SLOW IVP PRN ×3 (01:17→15:18)
[2021-12-15] MEDS: Nitroglycerin 2% Ointment 1 INCH/1 GM Packet TOP SCH ×2 (01:22→10:41)
[2021-12-15 01:42] LABS: Troponin I 1.655 ng/mL (< 0.028)
[2021-12-15 06:10] LABS: #Basophils 0.1 10x3/uL (0.0-0.2); #Eosinphils 0.5 10x3/uL (0.0-0.5); #Monocytes 0.5 10x3/uL (0.0-1.1); #Neutrophils 3.3 10x3/uL (1.5-8.4); %Basophils 0.8 % (0.0-2.0); %Eosinophils 8.4 % (0.0-6.0); %Lymphocytes 29.5 % (18.0-47.0); %Neutrophils 53.1 % (40.0-75.0); Hemoglobin 8.1 g/dL (13.5-17.5); Mean Corpuscular HGB CONC 27.7 g/dL (32.0-36.0); Mean Corpuscular Hemoglobin 21.7 pg (27.0-33.0); Mean Corpuscular Volume 78.3 fl (81.2-95.1); Mean Platelet Volume 11.5 fl (7.4-10.4); Platelet Count 204 10x3/uL (150-450); RBC Distribution Width 17.8 % (11.5-14.5); Red Blood Cell (RBC) Count 3.73 10x6/uL (4.32-5.72); White Blood Cell (WBC) Count 6.3 10x3/uL (3.5-10.5)
[2021-12-15 06:23] LABS: Anion Gap 10 mmol/L (10-20); BUN (Urea Nitrogen) 23 mg/dL (8.4-25.7); Calc. Creatinine Clearance 53 mL/min (70-130); Carbon Dioxide 22 mmol/L (23-31); Cardiac Risk 4.4 (Less than 4.5); Chloride 113 mmol/L (98-107); Cholesterol 114 mg/dl (< 200 Desired); Estimated GFR 50; Glucose 149 mg/dL (80-115); HDL Cholesterol 26 mg/dL (>60 Neg Risk); Iron 12 ug/dL (65-175); Iron Binding Capacity, Total 375 mcg/dL (261-462); LDL Cholesterol, Calculated 63 mg/dL; Potassium 3.2 mmol/L (3.5-5.1); Sodium 142 mmol/L (136-145); Triglycerides 127 mg/dL (Less than 150)
[2021-12-15 06:27] LABS: Troponin I 1.733 ng/mL (< 0.028)
[2021-12-15] MEDS: Aspirin Chewable 81 MG TAB PO SCH (10:40)
[2021-12-15] MEDS: Apixaban 5 MG TAB PO SCH ×2 (10:42→21:52)
[2021-12-15] MEDS: Amlodipine 5 MG TAB PO SCH (10:42)
[2021-12-15 14:28] LABS: SARS-CoV-2 NAA Rapid Test Not Detected (NotDetected)
[2021-12-15] MEDS: Atorvastatin Calcium 40 MG TAB PO SCH (21:52)
[2021-12-16] MEDS: Morphine 2 MG/ML VIAL SLOW IVP PRN ×2 (03:18→21:03)
[2021-12-16] MEDS: Aspirin Chewable 81 MG TAB PO SCH (10:01)
[2021-12-16] MEDS: Amlodipine 5 MG TAB PO SCH (10:02)
[2021-12-16] MEDS: Apixaban 5 MG TAB PO SCH ×2 (10:02→21:02)
[2021-12-16] MEDS: Atorvastatin Calcium 40 MG TAB PO SCH (21:02)
[2021-12-17] MEDS ORDERED: Furosemide 40 MG TAB PO PRN (09:00)
[2021-12-17] MEDS ORDERED: Amlodipine 5 MG TAB PO SCH (09:00)
[2021-12-17] MEDS: Aspirin Chewable 81 MG TAB PO SCH (09:54)
[2021-12-17] MEDS: Amlodipine 5 MG TAB PO SCH (09:54)
[2021-12-17] MEDS: Apixaban 5 MG TAB PO SCH ×2 (09:54→21:04)
[2021-12-17] MEDS: Atorvastatin Calcium 40 MG TAB PO SCH (21:03)
[2021-12-17] MEDS: Morphine 2 MG/ML VIAL SLOW IVP PRN (21:10)
[2021-12-18 04:23] LABS: Troponin I 0.423 ng/mL (< 0.028)
[2021-12-18] MEDS: Aspirin Chewable 81 MG TAB PO SCH (08:53)
[2021-12-18] MEDS: Amlodipine 5 MG TAB PO SCH (08:54)
[2021-12-18] MEDS: Apixaban 5 MG TAB PO SCH (08:54)
[2021-12-18 12:31] VITALS: BP 123/73; TEMP 97.6
== END 2021-12-18 13:00 | disposition home or self-care (01) | DRG 281 ==
LOC: UNDOADMIN 23:44 → CSHTELE 23:44
PROVIDERS: ADMIT Family Medicine; ATTEND Hospitalist
DX: I21.4 Non-ST elevation (NSTEMI) myocardial infarction (principal); I42.2 Other hypertrophic cardiomyopathy; Z20.822 Contact with and (suspected) exposure to COVID-19; I48.0 Paroxysmal atrial fibrillation; I10 Essential (primary) hypertension; E78.5 Hyperlipidemia, unspecified; D50.9 Iron deficiency anemia, unspecified; E11.65 Type 2 diabetes mellitus with hyperglycemia; Z59.00 Homelessness unspecified; Z88.8 Allergy status to other drugs, medicaments and biological substances; Z79.899 Other long term (current) drug therapy; Z79.02 Long term (current) use of antithrombotics/antiplatelets; Z87.11 Personal history of peptic ulcer disease; Z90.49 Acquired absence of other specified parts of digestive tract; Z87.891 Personal history of nicotine dependence; Z79.4 Long term (current) use of insulin
CPT/HCPCS: 36415; 36416; 80048; 80061; 83540; 83550; 83735; 84484; 85025; 93005; 93010; 93306; 94760; J2270; U0002

== ENCOUNTER 2022-03-01 02:23 | Inpatient (IN) | payer OTHER, MEDICAID ==
[2022-03-01 02:52] VITALS: BMI 27.0
[2022-03-01] MEDS ORDERED: Calcium Carbonate 500 MG ChewTAB PO PRN (02:53)
[2022-03-01] MEDS ORDERED: Guaifenesin DM 100-10/5 ML UDCUP PO PRN (02:53)
[2022-03-01] MEDS ORDERED: Acetaminophen 325 MG TAB PO PRN (02:53)
[2022-03-01] MEDS ORDERED: Ondansetron PF 4 MG/2 ML Vial IVP PRN (02:53)
[2022-03-01] MEDS ORDERED: Senokot S 8.6-50 MG TAB PO PRN (02:53)
[2022-03-01] MEDS ORDERED: Dextrose 5% in Water 1,000 ML IV PRN (03:11)
[2022-03-01] MEDS ORDERED: Dextrose 50% Abboject 50 ML SYRINGE SLOW IVP PRN (03:11)
[2022-03-01] MEDS ORDERED: HumaLOG 300 UNITS/3 ML VIAL SC PRN (03:11)
[2022-03-01 05:32] LABS: CKMB 2.9 ng/mL (0-6.6)
[2022-03-01] MEDS: DULoxetine 30 MG CAP PO SCH (08:09)
[2022-03-01] MEDS: OXcarbazepine 300 MG TAB PO SCH (08:09)
[2022-03-01] MEDS: Clopidogrel Bisulfate 75 MG TAB PO SCH (08:10)
[2022-03-01] MEDS: Ferrous Sulfate 325 MG TAB PO SCH ×2 (08:11→17:30)
[2022-03-01] MEDS: Atorvastatin Calcium 40 MG TAB PO SCH (08:12)
[2022-03-01] MEDS: Amlodipine 5 MG TAB PO SCH (08:12)
[2022-03-01] MEDS: Famotidine 20 MG TAB PO SCH ×2 (08:13→21:11)
[2022-03-01] MEDS: Carvedilol 6.25 MG TAB PO SCH ×2 (08:18→17:30)
[2022-03-01] MEDS ORDERED: Enoxaparin Sodium 40 MG/0.4 ML SYRINGE SC SCH (09:00)
[2022-03-01] MEDS: Apixaban 5 MG TAB PO SCH ×2 (11:19→21:11)
[2022-03-01 13:04] LABS: Hemoglobin A1c 6.2 % (4.0-6.0)
[2022-03-01] MEDS: Nitroglycerin 0.4 MG TAB (25 Tab Bottle) SL PRN ×2 (21:05→21:18)
[2022-03-01] MEDS: Mirtazapine 15 MG TAB PO SCH (21:09)
[2022-03-02] MEDS: Atorvastatin Calcium 40 MG TAB PO SCH (08:24)
[2022-03-02] MEDS: Apixaban 5 MG TAB PO SCH ×2 (08:24→21:15)
[2022-03-02] MEDS: OXcarbazepine 300 MG TAB PO SCH (08:24)
[2022-03-02] MEDS: Clopidogrel Bisulfate 75 MG TAB PO SCH (08:24)
[2022-03-02] MEDS: Famotidine 20 MG TAB PO SCH ×2 (08:24→21:15)
[2022-03-02] MEDS: Carvedilol 6.25 MG TAB PO SCH ×2 (08:24→17:27)
[2022-03-02] MEDS: Ferrous Sulfate 325 MG TAB PO SCH ×2 (08:25→17:27)
[2022-03-02] MEDS: Amlodipine 5 MG TAB PO SCH (08:25)
[2022-03-02] MEDS: DULoxetine 30 MG CAP PO SCH (08:25)
[2022-03-02 08:35] LABS: #Basophils 0.1 10x3/uL (0.0-0.2); #Eosinphils 0.4 10x3/uL (0.0-0.5); #Monocytes 0.4 10x3/uL (0.0-1.1); #Neutrophils 4.5 10x3/uL (1.5-8.4); %Basophils 0.9 % (0.0-2.0); %Eosinophils 5.3 % (0.0-6.0); %Lymphocytes 21.5 % (18.0-47.0); %Monocytes 5.8 % (0.0-10.0); %Neutrophils 66.1 % (40.0-75.0); Hemoglobin 10.1 g/dL (13.5-17.5); Mean Corpuscular HGB CONC 28.3 g/dL (32.0-36.0); Mean Corpuscular Volume 77.6 fl (81.2-95.1); Mean Platelet Volume 9.6 fl (7.4-10.4); Platelet Count 316 10x3/uL (150-450); RBC Distribution Width 17.2 % (11.5-14.5); White Blood Cell (WBC) Count 6.8 10x3/uL (3.5-10.5)
[2022-03-02 08:39] LABS: Anion Gap 12 mmol/L (10-20); BUN (Urea Nitrogen) 17 mg/dL (8.4-25.7); Calc. Creatinine Clearance 62 mL/min (70-130); Calcium 9.4 mg/dL (7.8-10.44); Carbon Dioxide 20 mmol/L (23-31); Chloride 114 mmol/L (98-107); Estimated GFR 61; Glucose 119 mg/dL (80-115); Potassium 4.3 mmol/L (3.5-5.1); Sodium 142 mmol/L (136-145)
[2022-03-02] MEDS: Mirtazapine 15 MG TAB PO SCH (21:15)
[2022-03-02] MEDS: Nitroglycerin 0.4 MG TAB (25 Tab Bottle) SL PRN (21:18)
[2022-03-02] MEDS ORDERED: HYDROcodone/Acetaminophen 5/325 mg Tablet PO SCH (22:15)
[2022-03-03 08:46] VITALS: BP 134/67; TEMP 98.7
[2022-03-03] MEDS: Atorvastatin Calcium 40 MG TAB PO SCH (09:40)
[2022-03-03] MEDS: DULoxetine 30 MG CAP PO SCH (09:40)
[2022-03-03] MEDS: Ferrous Sulfate 325 MG TAB PO SCH (09:41)
[2022-03-03] MEDS: OXcarbazepine 300 MG TAB PO SCH (09:41)
[2022-03-03] MEDS: Apixaban 5 MG TAB PO SCH (09:41)
[2022-03-03] MEDS: Famotidine 20 MG TAB PO SCH (09:41)
[2022-03-03] MEDS: Clopidogrel Bisulfate 75 MG TAB PO SCH (09:41)
[2022-03-03] MEDS: Carvedilol 6.25 MG TAB PO SCH (09:41)
[2022-03-03] MEDS: Amlodipine 5 MG TAB PO SCH (09:41)
== END 2022-03-03 10:40 | disposition home or self-care (01) | DRG 302 ==
LOC: CSHTELE 02:23 → INTOOBSV 02:23 → OBSVTOIN 03-02 18:27
PROVIDERS: ADMIT Student in an Organized Health Care Education/Training Program; ATTEND Internal Medicine
PROC: 8E0ZXY6 Isolation (ICD-10-PCS; principal; 2022-03-02)
DX: I25.111 Atherosclerotic heart disease of native coronary artery with angina pectoris with documented spasm (principal); U07.1 COVID-19; E87.20 Acidosis, unspecified; I42.2 Other hypertrophic cardiomyopathy; Z20.822 Contact with and (suspected) exposure to COVID-19; R79.89 Other specified abnormal findings of blood chemistry; F41.9 Anxiety disorder, unspecified; F32.A Depression, unspecified; N18.31 Chronic kidney disease, stage 3a; E11.22 Type 2 diabetes mellitus with diabetic chronic kidney disease; K21.00 Gastro-esophageal reflux disease with esophagitis, without bleeding; I48.0 Paroxysmal atrial fibrillation; I12.9 Hypertensive chronic kidney disease with stage 1 through stage 4 chronic kidney disease, or unspecified chronic kidney disease; E78.5 Hyperlipidemia, unspecified; E11.65 Type 2 diabetes mellitus with hyperglycemia; Z79.4 Long term (current) use of insulin; Z79.02 Long term (current) use of antithrombotics/antiplatelets; Z79.899 Other long term (current) drug therapy; Z88.8 Allergy status to other drugs, medicaments and biological substances; Z87.11 Personal history of peptic ulcer disease; Z90.49 Acquired absence of other specified parts of digestive tract; Z87.891 Personal history of nicotine dependence; Z59.01 Sheltered homelessness
CPT/HCPCS: 36415; 36416; 80048; 82553; 83036; 84484; 85025; 93005; 93010; G0378; J1815; U0003; U0005

== ENCOUNTER 2022-03-15 04:15 | Emergency (ER) | payer OTHER ==
[2022-03-15] MEDS ORDERED: Polyethylene Glycol 3350 17 GM Packet PO SCH (06:30)
[2022-03-15 06:54] LABS: #Eosinphils 0.3 10x3/uL (0.0-0.5); #Monocytes 0.5 10x3/uL (0.0-1.1); #Neutrophils 4.8 10x3/uL (1.5-8.4); %Basophils 0.6 % (0.0-2.0); %Eosinophils 4.5 % (0.0-6.0); %Lymphocytes 18.3 % (18.0-47.0); %Monocytes 7.1 % (0.0-10.0); %Neutrophils 69.2 % (40.0-75.0); Hemoglobin 9.8 g/dL (13.5-17.5); Mean Corpuscular HGB CONC 29.3 g/dL (32.0-36.0); Mean Corpuscular Hemoglobin 23.5 pg (27.0-33.0); Mean Corpuscular Volume 80.1 fl (81.2-95.1); Mean Platelet Volume 9.6 fl (7.4-10.4); Platelet Count 188 10x3/uL (150-450); RBC Distribution Width 20.8 % (11.5-14.5); Red Blood Cell (RBC) Count 4.17 10x6/uL (4.32-5.72); White Blood Cell (WBC) Count 6.9 10x3/uL (3.5-10.5)
[2022-03-15 07:34] LABS: ALT (SGPT) 6 U/L (8-55); AST (SGOT) 10 U/L (5-34); Albumin 3.4 g/dL (3.4-4.8); Alkaline Phosphatase 94 U/L (40-110); Anion Gap 11 mmol/L (10-20); BUN (Urea Nitrogen) 14 mg/dL (8.4-25.7); Bilirubin, Total 0.2 mg/dL (0.2-1.2); Calc. Creatinine Clearance 0 mL/min (70-130); Calcium 9.2 mg/dL (7.8-10.44); Carbon Dioxide 24 mmol/L (23-31); Chloride 111 mmol/L (98-107); Estimated GFR 46; Globulin 3.2 g/dL (2.4-3.5); Glucose 215 mg/dL (80-115); Potassium 4.2 mmol/L (3.5-5.1); Protein, Total 6.6 g/dL (5.8-8.1); Sodium 142 mmol/L (136-145)
[2022-03-15 07:37] LABS: Bilirubin Neg (Negative); Blood, Urine 10 (Negative); Clarity Cloudy (Clear); Glucose, Urine (Dipstick) 100 mg/dL (Negative); Ketone, Urine Negative (Negative); Leukocyte 500 (Negative); Nitrite Negative (Negative); Protein, Urine (Dipstick) 15 mg/dl (Neg-Trace); Urobilinogen Normal mg/dL (Less than 2)
[2022-03-15 07:50] LABS: Bacteria/HPF Rare-Few HPF (None Seen); RBC/HPF 0-3 HPF (0-3); Squamous Epithelial 0-3 HPF (0-3); WBC/HPF Greater Than 50 HPF (0-3); Yeast-Budding 1+ HPF (None Seen)
[2022-03-15 07:54] LABS: Anisocytosis SLIGHT = 6-15 cells (100X) (0-5/hpf); Hypochromia SLIGHT = 6-15 cells (100X) (0-5/hpf); Ovalocytes SLIGHT = 2-5 cells (100X) (0-1/hpf)
[2022-03-15 07:55] LABS: Platelet Morphology Comment Appears Adequate
== END 2022-03-15 08:19 | disposition home or self-care (01) ==
LOC: CSHERS 04:15
DX: N39.0 Urinary tract infection, site not specified (principal); E11.22 Type 2 diabetes mellitus with diabetic chronic kidney disease; N18.30 Chronic kidney disease, stage 3 unspecified; Z87.891 Personal history of nicotine dependence; Z79.899 Other long term (current) drug therapy
CPT/HCPCS: 36415; 80053; 81003; 81015; 82274; 85025; 87086; 99283

== ENCOUNTER 2022-05-20 23:49 | Observation (INO) | payer OTHER, MEDICAID ==
[2022-05-21 00:45] VITALS: BMI 27.3
[2022-05-21] MEDS ORDERED: Nitroglycerin 0.4 MG TAB (25 Tab Bottle) SL PRN (01:09)
[2022-05-21] MEDS: Nitroglycerin 2% Ointment 1 INCH/1 GM Packet TOP SCH ×4 (01:36→20:18)
[2022-05-21] MEDS: Sodium Chloride 0.9% 1,000 ML IV SCH ×2 (01:37→16:32)
[2022-05-21 02:10] LABS: Troponin I 0.039 ng/mL (< 0.028)
[2022-05-21] MEDS ORDERED: HumaLOG 300 UNITS/3 ML VIAL SC PRN (03:54)
[2022-05-21] MEDS ORDERED: Dextrose 5% in Water 1,000 ML IV PRN (03:54)
[2022-05-21] MEDS ORDERED: Dextrose 50% Abboject 50 ML SYRINGE SLOW IVP PRN (03:54)
[2022-05-21 05:06] LABS: #Basophils 0.1 10x3/uL (0.0-0.2); #Eosinphils 0.6 10x3/uL (0.0-0.5); #Monocytes 0.5 10x3/uL (0.0-1.1); #Neutrophils 3.6 10x3/uL (1.5-8.4); %Basophils 0.8 % (0.0-2.0); %Eosinophils 9.1 % (0.0-6.0); %Lymphocytes 27.5 % (18.0-47.0); %Monocytes 7.6 % (0.0-10.0); %Neutrophils 54.7 % (40.0-75.0); Hemoglobin 10.9 g/dL (13.5-17.5); Mean Corpuscular HGB CONC 29.2 g/dL (32.0-36.0); Mean Corpuscular Hemoglobin 23.5 pg (27.0-33.0); Mean Corpuscular Volume 80.4 fl (81.2-95.1); Mean Platelet Volume 10.5 fl (7.4-10.4); Platelet Count 213 10x3/uL (150-450); RBC Distribution Width 17.5 % (11.5-14.5); Red Blood Cell (RBC) Count 4.64 10x6/uL (4.32-5.72); White Blood Cell (WBC) Count 6.6 10x3/uL (3.5-10.5)
[2022-05-21 05:11] LABS: Troponin I 0.035 ng/mL (< 0.028)
[2022-05-21 05:13] LABS: Anion Gap 12 mmol/L (10-20); BUN (Urea Nitrogen) 32 mg/dL (8.4-25.7); Calc. Creatinine Clearance 44 mL/min (70-130); Calcium 8.7 mg/dL (7.8-10.44); Carbon Dioxide 18 mmol/L (23-31); Chloride 116 mmol/L (98-107); Estimated GFR 40; Glucose 209 mg/dL (80-115); Magnesium 1.9 mg/dL (1.6-2.6); Potassium 3.9 mmol/L (3.5-5.1); Sodium 142 mmol/L (136-145)
[2022-05-21 05:54] LABS: Hypochromia SLIGHT = 6-15 cells (100X) (0-5/hpf); Macrocytosis SLIGHT = 6-15 cells (100X) (0-5/hpf); Microcytosis SLIGHT = 6-15 cells (100X) (0-5/hpf)
[2022-05-21 05:55] LABS: Anisocytosis SLIGHT = 6-15 cells (100X) (0-5/hpf); Platelet Morphology Comment Appears Adequate
[2022-05-21] MEDS ORDERED: Carvedilol 3.125 MG TAB PO SCH (08:00)
[2022-05-21] MEDS: Apixaban 5 MG TAB PO SCH ×2 (08:50→21:59)
[2022-05-21] MEDS: Sucralfate 1 GM TAB PO SCH ×4 (08:50→22:03)
[2022-05-21] MEDS ORDERED: FLU VACC QS2022-23(65YR UP)/PF 240 MCG/0.7 ML SYRINGE IM ONE (09:00)
[2022-05-21] MEDS ORDERED: traMADol HCl 50 MG TAB PO SCH (22:00)
[2022-05-21] MEDS ORDERED: Morphine 2 MG/ML VIAL SLOW IVP SCH (23:45)
[2022-05-22] MEDS: Nitroglycerin 2% Ointment 1 INCH/1 GM Packet TOP SCH (04:52)
[2022-05-22] MEDS: Sodium Chloride 0.9% 1,000 ML IV SCH (05:52)
[2022-05-22] MEDS: Sucralfate 1 GM TAB PO SCH ×2 (05:53→11:12)
[2022-05-22 06:50] VITALS: TEMP 97.9
[2022-05-22] MEDS ORDERED: Carvedilol 3.125 MG TAB PO SCH ×2 (09:00→17:00)
[2022-05-22 09:19] VITALS: BP 134/79
[2022-05-22] MEDS: Apixaban 5 MG TAB PO SCH (10:30)
== END 2022-05-22 11:45 | disposition home or self-care (01) ==
LOC: INTOOBSV 23:49 → UNDOADMOB 23:49 → CSHTELE 23:49
PROVIDERS: ADMIT Internal Medicine; ATTEND Hospitalist
DX: R07.2 Precordial pain (principal); I48.0 Paroxysmal atrial fibrillation; I42.2 Other hypertrophic cardiomyopathy; I12.9 Hypertensive chronic kidney disease with stage 1 through stage 4 chronic kidney disease, or unspecified chronic kidney disease; E11.22 Type 2 diabetes mellitus with diabetic chronic kidney disease; N18.30 Chronic kidney disease, stage 3 unspecified; K21.9 Gastro-esophageal reflux disease without esophagitis; Z87.891 Personal history of nicotine dependence; Z87.11 Personal history of peptic ulcer disease; Z79.01 Long term (current) use of anticoagulants; Z79.899 Other long term (current) drug therapy; Z88.5 Allergy status to narcotic agent
CPT/HCPCS: 36415; 36416; 80048; 83735; 84484; 85025; 93005; 93010; 96374; G0378; J1815; J2272; J7050

== ENCOUNTER 2022-08-02 19:46 | Emergency (ER) | payer OTHER ==
[2022-08-02] MEDS ORDERED: Aspirin Chewable 81 MG TAB ONE (20:00)
[2022-08-02 20:24] LABS: #Basophils 0.1 10x3/uL (0.0-0.2); #Eosinphils 0.6 10x3/uL (0.0-0.5); #Monocytes 0.4 10x3/uL (0.0-1.1); #Neutrophils 5.3 10x3/uL (1.5-8.4); %Basophils 0.6 % (0.0-2.0); %Eosinophils 7.9 % (0.0-6.0); %Lymphocytes 19.1 % (18.0-47.0); %Monocytes 4.8 % (0.0-10.0); Hemoglobin 9.5 g/dL (13.5-17.5); Mean Corpuscular HGB CONC 28.4 g/dL (32.0-36.0); Mean Corpuscular Hemoglobin 21.9 pg (27.0-33.0); Mean Corpuscular Volume 77.1 fl (81.2-95.1); Mean Platelet Volume 10.5 fl (7.4-10.4); Platelet Count 233 10x3/uL (150-450); RBC Distribution Width 16.9 % (11.5-14.5); Red Blood Cell (RBC) Count 4.33 10x6/uL (4.32-5.72); White Blood Cell (WBC) Count 7.9 10x3/uL (3.5-10.5)
[2022-08-02 20:34] LABS: ALT (SGPT) 22 U/L (8-55); AST (SGOT) 14 U/L (5-34); Albumin 3.3 g/dL (3.4-4.8); Alkaline Phosphatase 121 U/L (40-110); Anion Gap 13 mmol/L (10-20); BUN (Urea Nitrogen) 21 mg/dL (8.4-25.7); Bilirubin, Total 0.3 mg/dL (0.2-1.2); Calc. Creatinine Clearance 0 mL/min (70-130); Calcium 8.3 mg/dL (7.8-10.44); Carbon Dioxide 20 mmol/L (23-31); Chloride 112 mmol/L (98-107); Estimated GFR 49; Globulin 3.1 g/dL (2.4-3.5); Glucose 290 mg/dL (80-115); Potassium 3.7 mmol/L (3.5-5.1); Protein, Total 6.4 g/dL (5.8-8.1); Sodium 141 mmol/L (136-145)
[2022-08-02 20:57] LABS: CKMB 2.6 ng/mL (0-6.6)
== END 2022-08-02 23:54 | disposition home or self-care (01) ==
LOC: CSHERS 19:46
DX: R07.9 Chest pain, unspecified (principal); E11.22 Type 2 diabetes mellitus with diabetic chronic kidney disease; N18.30 Chronic kidney disease, stage 3 unspecified; E78.5 Hyperlipidemia, unspecified; Z87.891 Personal history of nicotine dependence; Z79.02 Long term (current) use of antithrombotics/antiplatelets; Z79.84 Long term (current) use of oral hypoglycemic drugs
CPT/HCPCS: 71045; 80053; 82553; 83880; 84484; 85025; 93005

== ENCOUNTER 2022-11-08 10:31 | Observation (INO) | payer OTHER, MEDICAID ==
[2022-11-08 11:10] LABS: #Basophils 0.1 10x3/uL (0.0-0.2); #Eosinphils 0.5 10x3/uL (0.0-0.5); #Monocytes 0.4 10x3/uL (0.0-1.1); #Neutrophils 4.9 10x3/uL (1.5-8.4); %Basophils 1.1 % (0.0-2.0); %Eosinophils 6.4 % (0.0-6.0); %Lymphocytes 17.4 % (18.0-47.0); %Monocytes 5.5 % (0.0-10.0); %Neutrophils 68.9 % (40.0-75.0); Hemoglobin 11.6 g/dL (13.5-17.5); Mean Corpuscular HGB CONC 29.1 g/dL (32.0-36.0); Mean Corpuscular Hemoglobin 22.2 pg (27.0-33.0); Mean Corpuscular Volume 76.2 fl (81.2-95.1); Mean Platelet Volume 10.1 fl (7.4-10.4); Platelet Count 274 10x3/uL (150-450); RBC Distribution Width 18.2 % (11.5-14.5); Red Blood Cell (RBC) Count 5.22 10x6/uL (4.32-5.72); White Blood Cell (WBC) Count 7.1 10x3/uL (3.5-10.5)
[2022-11-08 11:27] LABS: ALT (SGPT) 15 U/L (8-55); AST (SGOT) 16 U/L (5-34); Albumin 3.7 g/dL (3.4-4.8); Alkaline Phosphatase 139 U/L (40-110); Anion Gap 16 mmol/L (10-20); BUN (Urea Nitrogen) 24 mg/dL (8.4-25.7); Bilirubin, Total 0.4 mg/dL (0.2-1.2); Calc. Creatinine Clearance 0 mL/min (70-130); Calcium 8.8 mg/dL (7.8-10.44); Carbon Dioxide 14 mmol/L (23-31); Chloride 106 mmol/L (98-107); Estimated GFR 33; Globulin 4.1 g/dL (2.4-3.5); Potassium 4.2 mmol/L (3.5-5.1); Protein, Total 7.8 g/dL (5.8-8.1); Sodium 132 mmol/L (136-145)
[2022-11-08 11:34] LABS: Glucose 456 mg/dL (80-115)
[2022-11-08 11:46] LABS: CKMB 3.3 ng/mL (0-6.6)
[2022-11-08] MEDS ORDERED: Insulin Regular 300 UNITS/3 ML VIAL ONE (12:09)
[2022-11-08] MEDS ORDERED: Nitroglycerin 0.4 MG TAB 1 EACH ONE ×2 (12:09→14:01)
[2022-11-08 12:47] LABS: Hypochromia SLIGHT = 6-15 cells (100X) (0-5/hpf)
[2022-11-08] MEDS ORDERED: Aspirin 325 MG TAB PO SCH (18:00)
[2022-11-08] MEDS ORDERED: Glucagon 1 MG/ML KIT IM PRN (18:10)
[2022-11-08] MEDS ORDERED: Dextrose 5% in Water 1,000 ML IV PRN (18:10)
[2022-11-08] MEDS ORDERED: Dextrose 50% Abboject 50 ML SYRINGE SLOW IVP PRN (18:10)
[2022-11-08 18:41] LABS: Troponin I 0.035 ng/mL (< 0.028)
[2022-11-08 20:26] VITALS: BMI 29.8
[2022-11-08] MEDS ORDERED: Lantus 1000 UNITS/10 ML VIAL SC SCH (21:00)
[2022-11-08] MEDS: HumaLOG 300 UNITS/3 ML VIAL SC PRN (21:46)
[2022-11-08 22:47] LABS: Troponin I 0.037 ng/mL (< 0.028)
[2022-11-09 05:13] LABS: Cardiac Risk 7.3 (Less than 4.5)
[2022-11-09 08:31] LABS: #Basophils 0.1 10x3/uL (0.0-0.2); #Eosinphils 0.4 10x3/uL (0.0-0.5); #Monocytes 0.4 10x3/uL (0.0-1.1); %Basophils 0.8 % (0.0-2.0); %Eosinophils 6.2 % (0.0-6.0); %Lymphocytes 24.8 % (18.0-47.0); %Neutrophils 61.6 % (40.0-75.0); Hemoglobin 10.5 g/dL (13.5-17.5); Mean Corpuscular HGB CONC 28.8 g/dL (32.0-36.0); Mean Corpuscular Hemoglobin 22.3 pg (27.0-33.0); Mean Corpuscular Volume 77.3 fl (81.2-95.1); Mean Platelet Volume 10.1 fl (7.4-10.4); Platelet Count 238 10x3/uL (150-450); RBC Distribution Width 18.1 % (11.5-14.5); Red Blood Cell (RBC) Count 4.71 10x6/uL (4.32-5.72); White Blood Cell (WBC) Count 6.5 10x3/uL (3.5-10.5)
[2022-11-09 08:33] LABS: Anion Gap 15 mmol/L (10-20); BUN (Urea Nitrogen) 19 mg/dL (8.4-25.7); Calc. Creatinine Clearance 49 mL/min (70-130); Calcium 8.4 mg/dL (7.8-10.44); Carbon Dioxide 15 mmol/L (23-31); Chloride 112 mmol/L (98-107); Estimated GFR 43; Glucose 300 mg/dL (80-115); Potassium 3.8 mmol/L (3.5-5.1); Sodium 138 mmol/L (136-145)
[2022-11-09] MEDS: HumaLOG 300 UNITS/3 ML VIAL SC PRN ×3 (09:58→20:54)
[2022-11-09] MEDS ORDERED: Nitroglycerin 0.4 MG TAB (25 Tab Bottle) SL PRN (11:02)
[2022-11-09] MEDS ORDERED: Lactated Ringer's 1,000 ML IV SCH (11:15)
[2022-11-09] MEDS: Carvedilol 6.25 MG TAB PO SCH (18:10)
[2022-11-09] MEDS ORDERED: Acetaminophen 500 MG TAB PO PRN (18:22)
[2022-11-09] MEDS: Lantus 1000 UNITS/10 ML VIAL SC SCH (20:55)
[2022-11-10 08:49] LABS: #Basophils 0.1 10x3/uL (0.0-0.2); #Eosinphils 0.3 10x3/uL (0.0-0.5); #Monocytes 0.3 10x3/uL (0.0-1.1); #Neutrophils 3.1 10x3/uL (1.5-8.4); %Eosinophils 6.9 % (0.0-6.0); %Lymphocytes 22.7 % (18.0-47.0); %Monocytes 5.7 % (0.0-10.0); %Neutrophils 63.1 % (40.0-75.0); Hemoglobin 10.6 g/dL (13.5-17.5); Mean Corpuscular HGB CONC 28.6 g/dL (32.0-36.0); Mean Corpuscular Hemoglobin 22.3 pg (27.0-33.0); Mean Corpuscular Volume 77.9 fl (81.2-95.1); Mean Platelet Volume 9.5 fl (7.4-10.4); Platelet Count 233 10x3/uL (150-450); Red Blood Cell (RBC) Count 4.76 10x6/uL (4.32-5.72); White Blood Cell (WBC) Count 4.9 10x3/uL (3.5-10.5)
[2022-11-10] MEDS ORDERED: Clopidogrel Bisulfate 75 MG TAB PO SCH (09:00)
[2022-11-10] MEDS ORDERED: glipiZIDE 5 MG TAB PO SCH (09:00)
[2022-11-10 09:09] LABS: Anion Gap 14 mmol/L (10-20); BUN (Urea Nitrogen) 14 mg/dL (8.4-25.7); Calc. Creatinine Clearance 63 mL/min (70-130); Calcium 8.8 mg/dL (7.8-10.44); Carbon Dioxide 17 mmol/L (23-31); Chloride 112 mmol/L (98-107); Estimated GFR 58; Glucose 227 mg/dL (80-115); Sodium 139 mmol/L (136-145)
[2022-11-10] MEDS: Carvedilol 6.25 MG TAB PO SCH (09:10)
[2022-11-10] MEDS: Lantus 1000 UNITS/10 ML VIAL SC SCH (09:13)
[2022-11-10] MEDS: HumaLOG 300 UNITS/3 ML VIAL SC PRN (12:22)
[2022-11-10 13:00] VITALS: BP 134/80; TEMP 97.7
== END 2022-11-10 13:01 | disposition home or self-care (01) ==
LOC: CSHERS 10:31 → INTOOBSV 19:41 → CSHTELE 19:41
PROVIDERS: ADMIT Family Medicine; ATTEND Family Medicine
DX: R07.2 Precordial pain (principal); E11.21 Type 2 diabetes mellitus with diabetic nephropathy; E11.22 Type 2 diabetes mellitus with diabetic chronic kidney disease; N18.30 Chronic kidney disease, stage 3 unspecified; I36.1 Nonrheumatic tricuspid (valve) insufficiency; E78.5 Hyperlipidemia, unspecified; I25.2 Old myocardial infarction; K21.9 Gastro-esophageal reflux disease without esophagitis; I25.10 Atherosclerotic heart disease of native coronary artery without angina pectoris; I48.91 Unspecified atrial fibrillation; Z88.6 Allergy status to analgesic agent; Z88.8 Allergy status to other drugs, medicaments and biological substances; Z79.84 Long term (current) use of oral hypoglycemic drugs; Z79.02 Long term (current) use of antithrombotics/antiplatelets; Z91.018 Allergy to other foods; Z87.891 Personal history of nicotine dependence; Z79.899 Other long term (current) drug therapy; Z91.012 Allergy to eggs
CPT/HCPCS: 71045; 80048 ×2; 80053; 80061; 82553; 82962 ×3; 84484 ×2; 85025 ×3; 93005; 93306; 96372 ×2; 96374; 99285; G0378 ×4; 36415; 36416; 93010; J1650; J1815; J7120

== ENCOUNTER 2022-12-06 09:21 | Emergency (ER) | payer OTHER, MEDICAID ==
[2022-12-06] MEDS ORDERED: Morphine 4 MG/ML VIAL ONE (09:53)
[2022-12-06 09:54] LABS: #Basophils 0.1 10x3/uL (0.0-0.2); #Eosinphils 0.4 10x3/uL (0.0-0.5); #Monocytes 0.2 10x3/uL (0.0-1.1); #Neutrophils 2.8 10x3/uL (1.5-8.4); %Basophils 1.1 % (0.0-2.0); %Lymphocytes 25.5 % (18.0-47.0); %Monocytes 5.1 % (0.0-10.0); %Neutrophils 59.5 % (40.0-75.0); Hematocrit 39.1 % (38.8-50.0); Hemoglobin 11.2 g/dL (13.5-17.5); Mean Corpuscular HGB CONC 28.6 g/dL (32.0-36.0); Platelet Count 233 10x3/uL (150-450); RBC Distribution Width 16.7 % (11.5-14.5); Red Blood Cell (RBC) Count 5.08 10x6/uL (4.32-5.72); White Blood Cell (WBC) Count 4.7 10x3/uL (3.5-10.5)
[2022-12-06 10:06] LABS: ALT (SGPT) 15 U/L (8-55); AST (SGOT) 13 U/L (5-34); Albumin 3.6 g/dL (3.4-4.8); Alkaline Phosphatase 131 U/L (40-110); Anion Gap 13 mmol/L (10-20); BUN (Urea Nitrogen) 20 mg/dL (8.4-25.7); Bilirubin, Total 0.4 mg/dL (0.2-1.2); Calc. Creatinine Clearance 0 mL/min (70-130); Calcium 9.1 mg/dL (7.8-10.44); Carbon Dioxide 18 mmol/L (23-31); Chloride 108 mmol/L (98-107); Estimated GFR 39; Globulin 3.6 g/dL (2.4-3.5); Potassium 4.2 mmol/L (3.5-5.1); Protein, Total 7.2 g/dL (5.8-8.1); Sodium 135 mmol/L (136-145)
[2022-12-06 10:08] LABS: Troponin I 0.025 ng/mL (< 0.028)
[2022-12-06 10:14] LABS: Glucose 416 mg/dL (80-115)
== END 2022-12-06 12:53 | disposition home or self-care (01) ==
LOC: CSHERS 09:21
DX: R07.9 Chest pain, unspecified (principal); E11.65 Type 2 diabetes mellitus with hyperglycemia; N18.30 Chronic kidney disease, stage 3 unspecified; E11.22 Type 2 diabetes mellitus with diabetic chronic kidney disease; Z87.891 Personal history of nicotine dependence
CPT/HCPCS: 36415; 36416; 71045; 80053; 84484; 85025; 85379; 93005; 96374; J2270

== ENCOUNTER 2023-03-11 23:22 | Emergency (ER) | payer OTHER ==
[2023-03-12 00:42] LABS: #Basophils 0.1 10x3/uL (0.0-0.2); #Eosinphils 0.3 10x3/uL (0.0-0.5); #Monocytes 0.5 10x3/uL (0.0-1.1); #Neutrophils 3.8 10x3/uL (1.5-8.4); %Basophils 0.8 % (0.0-2.0); %Eosinophils 4.2 % (0.0-6.0); %Lymphocytes 27.8 % (18.0-47.0); %Monocytes 7.7 % (0.0-10.0); Hemoglobin 10.3 g/dL (13.5-17.5); Mean Corpuscular HGB CONC 29.4 g/dL (32.0-36.0); Mean Corpuscular Hemoglobin 23.1 pg (27.0-33.0); Mean Corpuscular Volume 78.7 fl (81.2-95.1); Mean Platelet Volume 9.7 fl (7.4-10.4); Platelet Count 216 10x3/uL (150-450); RBC Distribution Width 17.1 % (11.5-14.5); Red Blood Cell (RBC) Count 4.45 10x6/uL (4.32-5.72); White Blood Cell (WBC) Count 6.4 10x3/uL (3.5-10.5)
[2023-03-12 00:52] LABS: ALT (SGPT) 21 U/L (8-55); AST (SGOT) 14 U/L (5-34); Albumin 3.5 g/dL (3.4-4.8); Alkaline Phosphatase 104 U/L (40-110); Anion Gap 14 mmol/L (10-20); BUN (Urea Nitrogen) 23 mg/dL (8.4-25.7); Bilirubin, Total 0.4 mg/dL (0.2-1.2); Calc. Creatinine Clearance 0 mL/min (70-130); Calcium 8.5 mg/dL (7.8-10.44); Carbon Dioxide 18 mmol/L (23-31); Chloride 108 mmol/L (98-107); Estimated GFR 36; Globulin 3.6 g/dL (2.4-3.5); Glucose 367 mg/dL (80-115); Potassium 3.8 mmol/L (3.5-5.1); Protein, Total 7.1 g/dL (5.8-8.1); Sodium 136 mmol/L (136-145)
[2023-03-12 00:54] LABS: Bilirubin Neg (Negative); Blood, Urine 150 (Negative); Glucose, Urine (Dipstick) >=1000 mg/dL (Negative); Ketone, Urine Negative (Negative); Leukocyte 500 (Negative); Nitrite Negative (Negative); Protein, Urine (Dipstick) 100 mg/dl (Neg-Trace); Urobilinogen Normal mg/dL (Less than 2)
[2023-03-12 01:16] LABS: Clarity Turbid (Clear)
[2023-03-12 01:22] LABS: Bacteria/HPF 1+ HPF (None Seen); CAUTI Indications for Culture Dysuria,urgency,freq; Squamous Epithelial None Seen HPF (0-3); WBC/HPF Greater than 50 HPF (0-3)
[2023-03-12 01:24] LABS: Urine Culture Reflex Yes Yes
[2023-03-12 03:47] LABS: Troponin I 0.021 ng/mL (< 0.028)
== END 2023-03-12 03:51 | disposition home or self-care (01) ==
LOC: CSHERS 23:22
DX: R07.9 Chest pain, unspecified (principal); N39.0 Urinary tract infection, site not specified; Z87.891 Personal history of nicotine dependence; I48.91 Unspecified atrial fibrillation; E11.9 Type 2 diabetes mellitus without complications; N18.30 Chronic kidney disease, stage 3 unspecified; E78.5 Hyperlipidemia, unspecified; Z79.899 Other long term (current) drug therapy; Z79.84 Long term (current) use of oral hypoglycemic drugs
CPT/HCPCS: 36415; 71045; 80053; 81001; 84484; 85025; 87086

== ENCOUNTER 2023-03-20 08:27 | Emergency (ER) | payer OTHER ==
[2023-03-20 09:04] LABS: #Basophils 0.1 10x3/uL (0.0-0.2); #Eosinphils 0.3 10x3/uL (0.0-0.5); #Monocytes 0.3 10x3/uL (0.0-1.1); #Neutrophils 3.4 10x3/uL (1.5-8.4); %Basophils 0.9 % (0.0-2.0); %Eosinophils 5.6 % (0.0-6.0); %Lymphocytes 23.4 % (18.0-47.0); %Neutrophils 63.7 % (40.0-75.0); Hemoglobin 11.5 g/dL (13.5-17.5); Mean Corpuscular HGB CONC 29.5 g/dL (32.0-36.0); Mean Corpuscular Hemoglobin 22.9 pg (27.0-33.0); Mean Corpuscular Volume 77.7 fl (81.2-95.1); Mean Platelet Volume 10.5 fl (7.4-10.4); Platelet Count 224 10x3/uL (150-450); RBC Distribution Width 16.4 % (11.5-14.5); Red Blood Cell (RBC) Count 5.02 10x6/uL (4.32-5.72); White Blood Cell (WBC) Count 5.3 10x3/uL (3.5-10.5)
[2023-03-20 09:15] LABS: ALT (SGPT) 18 U/L (8-55); AST (SGOT) 12 U/L (5-34); Albumin 3.5 g/dL (3.4-4.8); Alkaline Phosphatase 122 U/L (40-110); Anion Gap 14 mmol/L (10-20); BUN (Urea Nitrogen) 28 mg/dL (8.4-25.7); Bilirubin, Total 0.5 mg/dL (0.2-1.2); Calc. Creatinine Clearance 0 mL/min (70-130); Calcium 9.8 mg/dL (7.8-10.44); Carbon Dioxide 19 mmol/L (23-31); Chloride 104 mmol/L (98-107); Estimated GFR 35; Globulin 3.8 g/dL (2.4-3.5); Potassium 4.1 mmol/L (3.5-5.1); Protein, Total 7.3 g/dL (5.8-8.1); Sodium 133 mmol/L (136-145)
[2023-03-20 09:20] LABS: Glucose 485 mg/dL (80-115)
[2023-03-20 09:21] LABS: Troponin I 0.065 ng/mL (< 0.028)
[2023-03-20] MEDS ORDERED: Insulin Regular 300 UNITS/3 ML VIAL ONE (09:40)
[2023-03-20 10:07] LABS: Bilirubin Neg (Negative); Blood, Urine 50 (Negative); Clarity Cloudy (Clear); Glucose, Urine (Dipstick) >=1000 mg/dL (Negative); Ketone, Urine Negative (Negative); Leukocyte 500 (Negative); Nitrite Negative (Negative); Protein, Urine (Dipstick) 100 mg/dl (Neg-Trace); Specific Gravity, Urine 1.015 (1.005-1.030); Urobilinogen Normal mg/dL (Less than 2)
[2023-03-20 10:23] LABS: CAUTI Indications for Culture Dysuria,urgency,freq; RBC/HPF 0-3 HPF (0-3); WBC/HPF Greater than 50 HPF (0-3)
[2023-03-20 10:24] LABS: Bacteria/HPF Rare-Few HPF (None Seen); Squamous Epithelial 0-3 HPF (0-3); Yeast-Budding 1+ HPF (None Seen)
[2023-03-20 10:25] LABS: Urine Culture Reflex Yes Yes
== END 2023-03-20 13:09 | disposition home or self-care (01) ==
LOC: CSHERS 08:27
DX: R07.89 Other chest pain (principal); N39.0 Urinary tract infection, site not specified; E11.65 Type 2 diabetes mellitus with hyperglycemia; E78.5 Hyperlipidemia, unspecified; F17.210 Nicotine dependence, cigarettes, uncomplicated; I25.2 Old myocardial infarction; Z79.02 Long term (current) use of antithrombotics/antiplatelets; Z79.899 Other long term (current) drug therapy; Z79.84 Long term (current) use of oral hypoglycemic drugs
CPT/HCPCS: 36415; 80053; 81001; 84484; 85025; 87086; 93005; 93010; J1815

== ENCOUNTER 2023-04-08 10:30 | Inpatient (IN) | payer OTHER, MEDICAID, MEDICARE ==
[2023-04-08] MEDS ORDERED: fentaNYL 50 mcg/mL 1 mL Vial ONE (11:09)
[2023-04-08] MEDS ORDERED: Aspirin Chewable 81 MG TAB ONE (11:09)
[2023-04-08] MEDS ORDERED: Nitroglycerin 0.4 MG TAB 1 EACH ONE (11:10)
[2023-04-08 11:28] LABS: #Eosinphils 0.2 10x3/uL (0.0-0.5); #Monocytes 0.3 10x3/uL (0.0-1.1); %Basophils 0.9 % (0.0-2.0); %Eosinophils 4.6 % (0.0-6.0); %Monocytes 6.2 % (0.0-10.0); %Neutrophils 66.1 % (40.0-75.0); Hematocrit 36.4 % (38.8-50.0); Hemoglobin 10.9 g/dL (13.5-17.5); Mean Corpuscular HGB CONC 29.9 g/dL (32.0-36.0); Mean Corpuscular Hemoglobin 23.3 pg (27.0-33.0); Mean Corpuscular Volume 77.8 fl (81.2-95.1); Mean Platelet Volume 10.7 fl (7.4-10.4); Platelet Count 208 10x3/uL (150-450); RBC Distribution Width 16.3 % (11.5-14.5); Red Blood Cell (RBC) Count 4.68 10x6/uL (4.32-5.72); White Blood Cell (WBC) Count 4.6 10x3/uL (3.5-10.5)
[2023-04-08 11:47] LABS: Bilirubin Neg (Negative); Blood, Urine 50 (Negative); Clarity Cloudy (Clear); Glucose, Urine (Dipstick) >=1000 mg/dL (Negative); Ketone, Urine Negative (Negative); Leukocyte 500 (Negative); Nitrite Negative (Negative); Protein, Urine (Dipstick) 30 mg/dl (Neg-Trace); Urobilinogen Normal mg/dL (Less than 2)
[2023-04-08 11:52] LABS: ALT (SGPT) 21 U/L (8-55); AST (SGOT) 15 U/L (5-34); Albumin 3.5 g/dL (3.4-4.8); Alkaline Phosphatase 107 U/L (40-110); Anion Gap 15 mmol/L (10-20); BUN (Urea Nitrogen) 19 mg/dL (8.4-25.7); Bilirubin, Total 0.3 mg/dL (0.2-1.2); Calc. Creatinine Clearance 0 mL/min (70-130); Calcium 8.9 mg/dL (7.8-10.44); Carbon Dioxide 18 mmol/L (23-31); Chloride 105 mmol/L (98-107); Estimated GFR 36; Globulin 3.5 g/dL (2.4-3.5); Potassium 3.9 mmol/L (3.5-5.1); Sodium 134 mmol/L (136-145)
[2023-04-08 11:53] LABS: Troponin I 0.025 ng/mL (< 0.028)
[2023-04-08 11:58] LABS: CAUTI Indications for Culture Dysuria,urgency,freq; RBC/HPF 0-3 HPF (0-3); Squamous Epithelial 0-3 HPF (0-3); WBC/HPF Greater Than 50 HPF (0-3)
[2023-04-08 11:59] LABS: Bacteria/HPF 2+ HPF (None Seen); Yeast-Budding 1+ HPF (None Seen)
[2023-04-08 12:00] LABS: Urine Culture Reflex Yes Yes
[2023-04-08 12:01] LABS: Glucose 561 mg/dL (80-115)
[2023-04-08] MEDS ORDERED: cefTRIAXone (ROCEPHIN) 1 GM VIAL ONE (12:38)
[2023-04-08 14:26] LABS: Troponin I 0.031 ng/mL (< 0.028)
[2023-04-08] MEDS ORDERED: Fluconazole 100 MG TAB PO SCH (15:00)
[2023-04-08] MEDS ORDERED: Glucagon 1 MG/ML KIT IM PRN (15:21)
[2023-04-08] MEDS ORDERED: Dextrose 5% in Water 1,000 ML IV PRN (15:21)
[2023-04-08] MEDS ORDERED: Dextrose 50% Abboject 50 ML SYRINGE SLOW IVP PRN (15:21)
[2023-04-08] MEDS ORDERED: Ondansetron ODT 4 MG TAB PO PRN (15:21)
[2023-04-08] MEDS ORDERED: Acetaminophen 650 MG Suppository PR PRN (15:21)
[2023-04-08] MEDS ORDERED: HumaLOG 300 UNITS/3 ML VIAL SC PRN ×2 (15:21)
[2023-04-08] MEDS ORDERED: Guaifenesin DM 100-10/5 ML UDCUP PO PRN (15:21)
[2023-04-08] MEDS ORDERED: Senokot S 8.6-50 MG TAB PO PRN (15:21)
[2023-04-08] MEDS ORDERED: Acetaminophen 325 MG TAB PO PRN (15:21)
[2023-04-08] MEDS ORDERED: Ondansetron PF 4 MG/2 ML Vial IVP PRN (15:21)
[2023-04-08] MEDS ORDERED: Promethazine 25 MG TAB PO PRN (15:50)
[2023-04-08 16:04] VITALS: BMI 28.1
[2023-04-08] MEDS: Carvedilol 6.25 MG TAB PO SCH (16:26)
[2023-04-08] MEDS ORDERED: Insulin Regular 300 UNITS/3 ML VIAL IVP SCH (17:00)
[2023-04-08] MEDS: Morphine 2 MG/ML VIAL SLOW IVP PRN ×2 (17:22→20:56)
[2023-04-08] MEDS: Sucralfate 1 GM TAB PO SCH ×2 (17:22→20:57)
[2023-04-08 17:26] LABS: Troponin I 0.033 ng/mL (< 0.028)
[2023-04-08] MEDS ORDERED: Nitroglycerin 2% Ointment 1 INCH/1 GM Packet TOP SCH (18:15)
[2023-04-08] MEDS ORDERED: Lantus 1000 UNITS/10 ML VIAL SC SCH (21:00)
[2023-04-08] MEDS: Nitroglycerin 2% Ointment 1 INCH/1 GM Packet TOP SCH (21:02)
[2023-04-09 04:03] LABS: #Basophils 0.1 10x3/uL (0.0-0.2); #Eosinphils 0.3 10x3/uL (0.0-0.5); #Monocytes 0.4 10x3/uL (0.0-1.1); #Neutrophils 3.2 10x3/uL (1.5-8.4); %Basophils 1.1 % (0.0-2.0); %Eosinophils 4.8 % (0.0-6.0); %Lymphocytes 27.5 % (18.0-47.0); %Monocytes 6.6 % (0.0-10.0); %Neutrophils 59.4 % (40.0-75.0); Hematocrit 35.8 % (38.8-50.0); Hemoglobin 10.5 g/dL (13.5-17.5); Mean Corpuscular HGB CONC 29.3 g/dL (32.0-36.0); Mean Corpuscular Hemoglobin 23.3 pg (27.0-33.0); Mean Corpuscular Volume 79.4 fl (81.2-95.1); Mean Platelet Volume 10.6 fl (7.4-10.4); Platelet Count 206 10x3/uL (150-450); RBC Distribution Width 16.4 % (11.5-14.5); Red Blood Cell (RBC) Count 4.51 10x6/uL (4.32-5.72); White Blood Cell (WBC) Count 5.5 10x3/uL (3.5-10.5)
[2023-04-09 04:16] LABS: Anion Gap 12 mmol/L (10-20); BUN (Urea Nitrogen) 15 mg/dL (8.4-25.7); Calc. Creatinine Clearance 50 mL/min (70-130); Calcium 8.7 mg/dL (7.8-10.44); Carbon Dioxide 20 mmol/L (23-31); Chloride 112 mmol/L (98-107); Estimated GFR 46; Glucose 203 mg/dL (80-115); Potassium 3.5 mmol/L (3.5-5.1)
[2023-04-09 04:20] LABS: Sodium 140 mmol/L (136-145)
[2023-04-09] MEDS: Nitroglycerin 2% Ointment 1 INCH/1 GM Packet TOP SCH (05:59)
[2023-04-09 07:26] VITALS: TEMP 98.2
[2023-04-09] MEDS: Carvedilol 6.25 MG TAB PO SCH (08:47)
[2023-04-09] MEDS: Sucralfate 1 GM TAB PO SCH ×2 (08:47→12:31)
[2023-04-09] MEDS ORDERED: Enoxaparin 40 MG (0.4 mL) SYRINGE SC SCH (09:00)
[2023-04-09] MEDS ORDERED: NIFEdipine XL 30 MG ER.TAB PO SCH (09:00)
[2023-04-09] MEDS ORDERED: Ranolazine 500 MG ER.TAB PO SCH (09:00)
[2023-04-09] MEDS ORDERED: Apixaban 5 MG TAB PO SCH (09:00)
[2023-04-09] MEDS ORDERED: Clopidogrel Bisulfate 75 MG TAB PO SCH (09:00)
[2023-04-09 12:00] VITALS: BP 107/67
[2023-04-09] MEDS ORDERED: Fluconazole 100 MG TAB PO SCH (13:00)
[2023-04-09] MEDS ORDERED: Phenazopyridine HCl 95 MG TAB PO SCH (13:00)
[2023-04-09] MEDS ORDERED: Atorvastatin Calcium 40 MG TAB PO SCH (21:00)
[2023-04-10] MEDS ORDERED: Fluconazole 100 MG TAB PO SCH (09:00)
== END 2023-04-09 15:41 | disposition home or self-care (01) | DRG 303 ==
LOC: CSHERS 10:30 → CSHTELE 13:35
PROVIDERS: ADMIT Emergency Medicine; ATTEND Emergency Medicine
DX: I25.111 Atherosclerotic heart disease of native coronary artery with angina pectoris with documented spasm (principal); Z59.00 Homelessness unspecified; B37.49 Other urogenital candidiasis; R07.89 Other chest pain; I42.2 Other hypertrophic cardiomyopathy; I12.9 Hypertensive chronic kidney disease with stage 1 through stage 4 chronic kidney disease, or unspecified chronic kidney disease; R30.0 Dysuria; R35.89 Other polyuria; E78.5 Hyperlipidemia, unspecified; R61 Generalized hyperhidrosis; E11.22 Type 2 diabetes mellitus with diabetic chronic kidney disease; N18.30 Chronic kidney disease, stage 3 unspecified; K27.9 Peptic ulcer, site unspecified, unspecified as acute or chronic, without hemorrhage or perforation; K21.9 Gastro-esophageal reflux disease without esophagitis; I48.0 Paroxysmal atrial fibrillation; R82.81 Pyuria; G47.33 Obstructive sleep apnea (adult) (pediatric); Z91.012 Allergy to eggs; Z91.018 Allergy to other foods; Z88.8 Allergy status to other drugs, medicaments and biological substances; Z90.49 Acquired absence of other specified parts of digestive tract; Z98.890 Other specified postprocedural states; Z87.891 Personal history of nicotine dependence
CPT/HCPCS: 36415; 36416; 71045; 80048; 80053; 81001; 83880; 84484; 85025; 87086; 93005; 93010; 93306; 94760; 96365; 96375; J0696; J1815; J2272; J3010; Q0169

== ENCOUNTER 2023-05-16 08:35 | Emergency (ER) | payer OTHER, MEDICAID ==
[2023-05-16 10:09] LABS: Hemoglobin 9.8 g/dL (13.5-17.5); Mean Corpuscular HGB CONC 28.8 g/dL (32.0-36.0); Mean Corpuscular Hemoglobin 22.4 pg (27.0-33.0); Mean Corpuscular Volume 77.6 fl (81.2-95.1); RBC Distribution Width 17.2 % (11.5-14.5); Red Blood Cell (RBC) Count 4.38 10x6/uL (4.32-5.72); White Blood Cell (WBC) Count 4.8 10x3/uL (3.5-10.5)
[2023-05-16 10:10] LABS: #Eosinphils 0.3 10x3/uL (0.0-0.5); #Monocytes 0.2 10x3/uL (0.0-1.1); #Neutrophils 3.2 10x3/uL (1.5-8.4); %Basophils 0.8 % (0.0-2.0); %Eosinophils 5.2 % (0.0-6.0); %Lymphocytes 21.6 % (18.0-47.0); %Monocytes 4.6 % (0.0-10.0); %Neutrophils 67.2 % (40.0-75.0)
[2023-05-16 10:20] LABS: ALT (SGPT) 15 U/L (8-55); AST (SGOT) 14 U/L (5-34); Albumin 3.6 g/dL (3.4-4.8); Alkaline Phosphatase 110 U/L (40-110); Anion Gap 12 mmol/L (10-20); BUN (Urea Nitrogen) 14 mg/dL (8.4-25.7); Bilirubin, Total 0.3 mg/dL (0.2-1.2); Calc. Creatinine Clearance 0 mL/min (70-130); Calcium 8.3 mg/dL (7.8-10.44); Carbon Dioxide 22 mmol/L (23-31); Chloride 110 mmol/L (98-107); Estimated GFR 42; Globulin 3.4 g/dL (2.4-3.5); Glucose 250 mg/dL (80-115); Potassium 3.8 mmol/L (3.5-5.1); Sodium 140 mmol/L (136-145)
[2023-05-16 10:32] LABS: Anisocytosis SLIGHT = 6-15 cells (100X) (0-5/hpf); Microcytosis SLIGHT = 6-15 cells (100X) (0-5/hpf); Polychromasia SLIGHT = 2-3 cells (100X) (0-2/hpf)
[2023-05-16 10:33] LABS: Mean Platelet Volume 10.7 fl (7.4-10.4); Platelet Adequacy Comment Appears Decreased; Platelet Count 99 10x3/uL (150-450)
== END 2023-05-16 11:15 | disposition home or self-care (01) ==
LOC: CSHERS 08:35
DX: E87.70 Fluid overload, unspecified (principal); R07.89 Other chest pain; N18.30 Chronic kidney disease, stage 3 unspecified; E11.9 Type 2 diabetes mellitus without complications; Z87.891 Personal history of nicotine dependence
CPT/HCPCS: 71045; 80053; 83880; 84484; 85025; 93005

== ENCOUNTER 2023-06-20 07:37 | Observation (INO) | payer OTHER, MEDICAID ==
[2023-06-20] MEDS ORDERED: Clopidogrel Bisulfate 300 MG TAB ONE (08:34)
[2023-06-20] MEDS ORDERED: Nitroglycerin 0.4 MG TAB 1 EACH ONE (08:35)
[2023-06-20 08:40] LABS: #Eosinphils 0.2 10x3/uL (0.0-0.5); #Monocytes 0.4 10x3/uL (0.0-1.1); #Neutrophils 4.9 10x3/uL (1.5-8.4); %Basophils 0.6 % (0.0-2.0); %Eosinophils 3.3 % (0.0-6.0); %Lymphocytes 16.6 % (18.0-47.0); %Monocytes 5.5 % (0.0-10.0); %Neutrophils 73.4 % (40.0-75.0); Hematocrit 35.6 % (38.8-50.0); Hemoglobin 10.8 g/dL (13.5-17.5); Mean Corpuscular HGB CONC 30.3 g/dL (32.0-36.0); Mean Corpuscular Hemoglobin 23.3 pg (27.0-33.0); Mean Corpuscular Volume 76.9 fl (81.2-95.1); Mean Platelet Volume 10.5 fl (7.4-10.4); Platelet Count 194 10x3/uL (150-450); RBC Distribution Width 17.7 % (11.5-14.5); Red Blood Cell (RBC) Count 4.63 10x6/uL (4.32-5.72); White Blood Cell (WBC) Count 6.7 10x3/uL (3.5-10.5)
[2023-06-20 08:58] LABS: ALT (SGPT) 11 U/L (8-55); AST (SGOT) 9 U/L (5-34); Albumin 3.5 g/dL (3.4-4.8); Alkaline Phosphatase 128 U/L (40-110); Anion Gap 13 mmol/L (10-20); BUN (Urea Nitrogen) 19 mg/dL (8.4-25.7); Bilirubin, Total 0.3 mg/dL (0.2-1.2); Calc. Creatinine Clearance 0 mL/min (70-130); Calcium 9.4 mg/dL (7.8-10.44); Carbon Dioxide 18 mmol/L (23-31); Chloride 107 mmol/L (98-107); Estimated GFR 32; Globulin 3.7 g/dL (2.4-3.5); Lipase 10 U/L (8-78); Potassium 4.3 mmol/L (3.5-5.1); Protein, Total 7.2 g/dL (5.8-8.1); Sodium 134 mmol/L (136-145)
[2023-06-20 09:02] LABS: Troponin I 0.041 ng/mL (< 0.028)
[2023-06-20 09:21] LABS: Glucose 513 mg/dL (80-115)
[2023-06-20] MEDS ORDERED: Morphine 4 MG/ML VIAL ONE (10:01)
[2023-06-20] MEDS ORDERED: Nitroglycerin 2% Ointment 1 INCH/1 GM Packet ONE (10:01)
[2023-06-20] MEDS ORDERED: Nitroglycerin 0.4 MG TAB (25 Tab Bottle) SL PRN ×2 (10:02→11:21)
[2023-06-20] MEDS ORDERED: Acetaminophen 325 MG TAB PO PRN (10:05)
[2023-06-20] MEDS ORDERED: Ondansetron ODT 4 MG TAB PO PRN (10:05)
[2023-06-20] MEDS ORDERED: Ondansetron PF 4 MG/2 ML Vial IVP PRN (10:05)
[2023-06-20 10:36] LABS: Bilirubin Neg (Negative); Blood, Urine 50 (Negative); Clarity Cloudy (Clear); Glucose, Urine (Dipstick) >=1000 mg/dL (Negative); Ketone, Urine Negative (Negative); Leukocyte 500 (Negative); Nitrite Negative (Negative); Protein, Urine (Dipstick) 30 mg/dl (Neg-Trace); Specific Gravity, Urine 1.005 (1.005-1.030); Urobilinogen Normal mg/dL (Less than 2)
[2023-06-20 10:44] LABS: Bacteria/HPF 1+ HPF (None Seen); CAUTI Indications for Culture Pelvic or flank pain; Squamous Epithelial 0-3 HPF (0-3); Urine Culture Reflex Yes Yes; WBC/HPF Greater than 50 HPF (0-3)
[2023-06-20] MEDS: Promethazine HCl 12.5 MG, Admixture Fee 1 EACH in Sodium Chloride 0.9% 50 ML IVPB SCH (10:52)
[2023-06-20 11:01] LABS: Magnesium 1.6 mg/dL (1.6-2.6)
[2023-06-20] MEDS ORDERED: Phenazopyridine HCl 95 MG TAB PO PRN (11:21)
[2023-06-20] MEDS ORDERED: cefTRIAXone (ROCEPHIN) 1 GM VIAL ONE (11:23)
[2023-06-20] MEDS: cefTRIAXone\\ROCEPHIN 1 GM in Sodium Chloride 0.9% 100 ML IVPB SCH (11:30)
[2023-06-20] MEDS ORDERED: Sucralfate 1 GM TAB PO SCH (11:30)
[2023-06-20] MEDS ORDERED: Dextrose 5% in Water 1,000 ML IV PRN (11:37)
[2023-06-20] MEDS ORDERED: Dextrose 50% Abboject 50 ML SYRINGE SLOW IVP PRN (11:37)
[2023-06-20] MEDS ORDERED: HumaLOG 300 UNITS/3 ML VIAL SC PRN (11:37)
[2023-06-20] MEDS ORDERED: Glucagon 1 MG/ML KIT IM PRN (11:37)
[2023-06-20] MEDS ORDERED: Sucralfate 1 GM/10 ML UDCUP ONE (12:42)
[2023-06-20] MEDS: Sucralfate 1 GM TAB PO SCH (12:43)
[2023-06-20 12:53] LABS: Troponin I 0.036 ng/mL (< 0.028)
[2023-06-20] MEDS ORDERED: Iopamidol 370 76% 100 ML VIAL ONE (14:39)
[2023-06-20 15:40] LABS: Troponin I 0.038 ng/mL (< 0.028)
[2023-06-20] MEDS: HumaLOG 300 UNITS/3 ML VIAL SC PRN (16:32)
[2023-06-20 16:45] LABS: Hemoglobin A1c 11.1 % (4.0-6.0)
[2023-06-20 17:35] VITALS: BMI 28.1
[2023-06-20] MEDS: Apixaban 5 MG TAB PO SCH (21:53)
[2023-06-20] MEDS: Ranolazine ER 500 MG TAB PO SCH (21:53)
[2023-06-20] MEDS: Lantus 1000 UNITS/10 ML VIAL SC SCH (21:54)
[2023-06-20] MEDS: Atorvastatin Calcium 40 MG TAB PO SCH (21:54)
[2023-06-21 05:52] LABS: #Eosinphils 0.3 10x3/uL (0.0-0.5); #Monocytes 0.4 10x3/uL (0.0-1.1); #Neutrophils 3.4 10x3/uL (1.5-8.4); %Basophils 0.5 % (0.0-2.0); %Eosinophils 4.7 % (0.0-6.0); %Lymphocytes 28.1 % (18.0-47.0); %Neutrophils 59.2 % (40.0-75.0); Hematocrit 35.8 % (38.8-50.0); Hemoglobin 10.5 g/dL (13.5-17.5); Mean Corpuscular HGB CONC 29.3 g/dL (32.0-36.0); Mean Corpuscular Hemoglobin 22.6 pg (27.0-33.0); Mean Corpuscular Volume 77.2 fl (81.2-95.1); Mean Platelet Volume 10.1 fl (7.4-10.4); Platelet Count 189 10x3/uL (150-450); Red Blood Cell (RBC) Count 4.64 10x6/uL (4.32-5.72); White Blood Cell (WBC) Count 5.7 10x3/uL (3.5-10.5)
[2023-06-21 05:58] LABS: Anion Gap 12 mmol/L (10-20); BUN (Urea Nitrogen) 18 mg/dL (8.4-25.7); Calc. Creatinine Clearance 48 mL/min (70-130); Carbon Dioxide 20 mmol/L (23-31); Chloride 109 mmol/L (98-107); Estimated GFR 44; Potassium 3.8 mmol/L (3.5-5.1); Sodium 137 mmol/L (136-145)
[2023-06-21 05:59] LABS: Calcium 8.9 mg/dL (7.8-10.44); Glucose 263 mg/dL (80-115)
[2023-06-21 08:58] VITALS: BP 125/78; TEMP 97.8
[2023-06-21] MEDS: Clopidogrel Bisulfate 75 MG TAB PO SCH (08:59)
[2023-06-21] MEDS ORDERED: Clopidogrel Bisulfate 75 MG TAB PO SCH (09:00)
[2023-06-21] MEDS: Magnesium 2 GM/50 ML(in water) 2 GM in Premix 1 BAG IVPB SCH (10:22)
[2023-06-21] MEDS: FLU VACC QS2023(65UP)/MF59C/PF 60 MCG/0.5 ML SYRINGE IM ONE (10:22)
== END 2023-06-21 15:45 | disposition home or self-care (01) ==
LOC: CSHERS 07:37 → CSHERHOLD 10:02 → CSHTELE 16:12
PROVIDERS: ADMIT Hospitalist; ATTEND Internal Medicine
DX: R07.2 Precordial pain (principal); I42.9 Cardiomyopathy, unspecified; I25.110 Atherosclerotic heart disease of native coronary artery with unstable angina pectoris; I48.0 Paroxysmal atrial fibrillation; E78.5 Hyperlipidemia, unspecified; I12.9 Hypertensive chronic kidney disease with stage 1 through stage 4 chronic kidney disease, or unspecified chronic kidney disease; N18.30 Chronic kidney disease, stage 3 unspecified; E11.22 Type 2 diabetes mellitus with diabetic chronic kidney disease; K21.9 Gastro-esophageal reflux disease without esophagitis; N39.0 Urinary tract infection, site not specified; I25.2 Old myocardial infarction; Z90.49 Acquired absence of other specified parts of digestive tract; Z98.890 Other specified postprocedural states; Z87.891 Personal history of nicotine dependence; Z79.01 Long term (current) use of anticoagulants; Z79.4 Long term (current) use of insulin; Z79.899 Other long term (current) drug therapy; Z91.012 Allergy to eggs; Z88.6 Allergy status to analgesic agent; Z91.018 Allergy to other foods; Z88.5 Allergy status to narcotic agent; Z79.02 Long term (current) use of antithrombotics/antiplatelets; R35.0 Frequency of micturition
CPT/HCPCS: 71045; 71275; 74174; 80048; 81001; 82962 ×2; 83036; 83690; 83735; 84484 ×2; 85025; 87086; 90694; 93005; 94762; 96374; 96375; 99285; G0008; 36415; 36416; 80053; 84443; 90471; 93010; 96376; G0378; J0696; J1815; J2270; J2550; J3475; J3490; Q9967

== ENCOUNTER 2023-08-21 10:36 | Emergency (ER) | payer OTHER ==
[2023-08-21 11:07] LABS: #Basophils 0.04 10x3/uL (0.0-0.2); #Eosinphils 0.36 10x3/uL (0.0-0.5); #Monocytes 0.42 10x3/uL (0.0-1.1); %Basophils 0.6 % (0.0-2.0); %Eosinophils 5.5 % (0.0-6.0); %Lymphocytes 21.5 % (18.0-47.0); %Monocytes 6.4 % (0.0-10.0); %Neutrophils 65.7 % (40.0-75.0); Hematocrit 36.2 % (38.8-50.0); Hemoglobin 10.9 g/dL (13.5-17.5); Mean Corpuscular HGB CONC 30.1 g/dL (32.0-36.0); Mean Corpuscular Hemoglobin 23.2 pg (27.0-33.0); Mean Corpuscular Volume 77.2 fl (81.2-95.1); Mean Platelet Volume 11.3 fl (7.4-10.4); Platelet Count 206 10x3/uL (150-450); RBC Distribution Width 15.9 % (11.5-14.5); Red Blood Cell (RBC) Count 4.69 10x6/uL (4.32-5.72); White Blood Cell (WBC) Count 6.6 10x3/uL (3.5-10.5)
[2023-08-21 11:18] LABS: ALT (SGPT) 17 U/L (8-55); AST (SGOT) 10 U/L (5-34); Albumin 3.5 g/dL (3.4-4.8); Alkaline Phosphatase 136 U/L (40-110); Anion Gap 14 mmol/L (10-20); BUN (Urea Nitrogen) 26 mg/dL (8.4-25.7); Bilirubin, Total 0.3 mg/dL (0.2-1.2); Calc. Creatinine Clearance 0 mL/min (70-130); Carbon Dioxide 20 mmol/L (23-31); Chloride 104 mmol/L (98-107); Estimated GFR 33; Potassium 4.5 mmol/L (3.5-5.1); Protein, Total 7.5 g/dL (5.8-8.1); Sodium 133 mmol/L (136-145)
[2023-08-21 11:21] LABS: Troponin I 0.029 ng/mL (< 0.028)
[2023-08-21 11:29] LABS: Glucose 541 mg/dL (80-115)
[2023-08-21] MEDS ORDERED: Lantus 1000 UNITS/10 ML VIAL SC SCH (11:45)
== END 2023-08-21 12:15 | disposition home or self-care (01) ==
LOC: CSHERS 10:36
DX: R07.9 Chest pain, unspecified (principal); E11.65 Type 2 diabetes mellitus with hyperglycemia; E11.22 Type 2 diabetes mellitus with diabetic chronic kidney disease; N18.30 Chronic kidney disease, stage 3 unspecified; Z87.891 Personal history of nicotine dependence
CPT/HCPCS: 36415; 36416; 71045; 80053; 84484; 85025; 93005; J1815

== ENCOUNTER 2024-01-30 12:37 | Emergency (ER) | payer OTHER ==
[2024-01-30] MEDS ORDERED: Ondansetron PF 4 MG/2 ML Vial ONE (13:25)
[2024-01-30] MEDS ORDERED: Morphine 4 MG/ML VIAL ONE (13:25)
[2024-01-30] MEDS ORDERED: Nitroglycerin 2% Ointment 1 INCH/1 GM Packet ONE (13:25)
[2024-01-30] MEDS ORDERED: Aspirin Chewable 81 MG TAB ONE (13:26)
[2024-01-30 13:35] LABS: #Basophils 0.04 10x3/uL (0.0-0.2); #Eosinophils 0.37 10x3/uL (0.0-0.5); #Monocytes 0.45 10x3/uL (0.0-1.1); #Neutrophils 5.23 10x3/uL (1.5-8.4); %Basophils 0.5 % (0.0-2.0); %Eosinophils 4.9 % (0.0-6.0); %Lymphocytes 18.8 % (18.0-47.0); %Monocytes 5.9 % (0.0-10.0); %Neutrophils 68.8 % (40.0-75.0); Hematocrit 36.6 % (38.8-50.0); Hemoglobin 10.5 g/dL (13.5-17.5); Mean Corpuscular HGB CONC 28.7 g/dL (32.0-36.0); Mean Corpuscular Hemoglobin 22.2 pg (27.0-33.0); Mean Corpuscular Volume 77.4 fL (81.2-95.1); Mean Platelet Volume 10.1 fL (7.4-10.4); Platelet Count 280 10x3/uL (150-450); Red Blood Cell (RBC) Count 4.73 10x6/uL (4.32-5.72); White Blood Cell (WBC) Count 7.6 10x3/uL (3.5-10.5)
[2024-01-30 13:39] LABS: ALT (SGPT) 16 U/L (8-55); AST (SGOT) 14 U/L (5-34); Albumin 3.3 g/dL (3.4-4.8); Alkaline Phosphatase 108 U/L (40-110); Anion Gap 14 mmol/L (10-20); BUN (Urea Nitrogen) 24 mg/dL (8.4-25.7); Bilirubin, Total 0.4 mg/dL (0.2-1.2); Calc. Creatinine Clearance 0 mL/min (70-130); Calcium 9.2 mg/dL (7.8-10.44); Carbon Dioxide 18 mmol/L (23-31); Chloride 105 mmol/L (98-107); Estimated GFR 44; Globulin 4.5 g/dL (2.4-3.5); Glucose 368 mg/dL (80-115); Lipase 10 U/L (8-78); Potassium 4.4 mmol/L (3.5-5.1); Protein, Total 7.8 g/dL (5.8-8.1); Sodium 133 mmol/L (136-145)
[2024-01-30 13:41] LABS: Troponin I 0.021 ng/mL (< 0.028)
[2024-01-30 14:09] LABS: Hypochromia SLIGHT = 6-15 cells (100X) (0-5/hpf)
== END 2024-01-30 14:31 | disposition home or self-care (01) ==
LOC: CSHERS 12:37
DX: R07.9 Chest pain, unspecified (principal); E11.9 Type 2 diabetes mellitus without complications; I12.9 Hypertensive chronic kidney disease with stage 1 through stage 4 chronic kidney disease, or unspecified chronic kidney disease; N18.30 Chronic kidney disease, stage 3 unspecified; Z55.6 Problems related to health literacy; Z75.3 Unavailability and inaccessibility of health-care facilities; Z87.891 Personal history of nicotine dependence
CPT/HCPCS: 71045; 80053; 83690; 84484; 85025; 93005; J2272; J2405; 96374; 96375

== ENCOUNTER 2024-02-17 05:28 | Emergency (ER) | payer OTHER ==
[2024-02-17 06:25] LABS: Bilirubin Neg (Negative); Blood, Urine 150 (Negative); Clarity Slightly Cloudy (Clear); Glucose, Urine (Dipstick) 100 mg/dL (Negative); Ketone, Urine Negative (Negative); Leukocyte 500 (Negative); Nitrite Negative (Negative); Protein, Urine (Dipstick) 30 mg/dl (Neg-Trace); Urobilinogen Normal mg/dL (Less than 2)
[2024-02-17 06:33] LABS: Bacteria/HPF 2+ HPF (None Seen); CAUTI Indications for Culture Dysuria,urgency,freq; Squamous Epithelial 0-3 HPF (0-3); WBC/HPF Greater Than 50 HPF (0-3)
[2024-02-17 06:35] LABS: Urine Culture Reflex Yes Yes; Yeast-Budding Rare HPF (None Seen)
== END 2024-02-17 06:58 | disposition home or self-care (01) ==
LOC: CSHERS 05:28
DX: N39.0 Urinary tract infection, site not specified (principal); E78.5 Hyperlipidemia, unspecified; I42.9 Cardiomyopathy, unspecified; I48.91 Unspecified atrial fibrillation; E11.22 Type 2 diabetes mellitus with diabetic chronic kidney disease; N18.30 Chronic kidney disease, stage 3 unspecified; Z87.891 Personal history of nicotine dependence; Z79.84 Long term (current) use of oral hypoglycemic drugs; Z79.02 Long term (current) use of antithrombotics/antiplatelets; Z79.899 Other long term (current) drug therapy
CPT/HCPCS: 81001; 87086; 93005; 99285

== ENCOUNTER 2024-02-25 10:30 | Emergency (ER) | payer OTHER ==
[2024-02-25 12:32] LABS: #Basophils 0.05 10x3/uL (0.0-0.2); #Eosinophils 0.62 10x3/uL (0.0-0.5); #Monocytes 0.47 10x3/uL (0.0-1.1); %Basophils 0.8 % (0.0-2.0); %Eosinophils 9.5 % (0.0-6.0); %Lymphocytes 21.7 % (18.0-47.0); %Monocytes 7.2 % (0.0-10.0); %Neutrophils 59.6 % (40.0-75.0); Hematocrit 34.8 % (38.8-50.0); Mean Corpuscular HGB CONC 28.7 g/dL (32.0-36.0); Mean Corpuscular Hemoglobin 22.2 pg (27.0-33.0); Mean Corpuscular Volume 77.3 fL (81.2-95.1); Mean Platelet Volume 10.3 fL (7.4-10.4); Platelet Count 221 10x3/uL (150-450); RBC Distribution Width 15.5 % (11.5-14.5); White Blood Cell (WBC) Count 6.5 10x3/uL (3.5-10.5)
[2024-02-25 12:50] LABS: ALT (SGPT) 12 U/L (8-55); AST (SGOT) 9 U/L (5-34); Albumin 3.2 g/dL (3.4-4.8); Alkaline Phosphatase 112 U/L (40-110); Anion Gap 12 mmol/L (10-20); BUN (Urea Nitrogen) 29 mg/dL (8.4-25.7); Bilirubin, Total 0.3 mg/dL (0.2-1.2); Calc. Creatinine Clearance 0 mL/min (70-130); Calcium 9.1 mg/dL (7.8-10.44); Carbon Dioxide 20 mmol/L (23-31); Chloride 104 mmol/L (98-107); Estimated GFR 39; Globulin 4.2 g/dL (2.4-3.5); Glucose 369 mg/dL (80-115); Potassium 4.1 mmol/L (3.5-5.1); Protein, Total 7.4 g/dL (5.8-8.1); Sodium 132 mmol/L (136-145)
[2024-02-25 12:52] LABS: Troponin I 0.027 ng/mL (< 0.028)
== END 2024-02-25 13:50 | disposition home or self-care (01) ==
LOC: CSHERS 10:30
DX: R07.9 Chest pain, unspecified (principal); G89.29 Other chronic pain; I25.2 Old myocardial infarction; I12.9 Hypertensive chronic kidney disease with stage 1 through stage 4 chronic kidney disease, or unspecified chronic kidney disease; E11.22 Type 2 diabetes mellitus with diabetic chronic kidney disease; N18.30 Chronic kidney disease, stage 3 unspecified; Z87.891 Personal history of nicotine dependence
CPT/HCPCS: 71045; 80053; 84484; 85025; 93005

== ENCOUNTER 2024-03-03 03:11 | Emergency (ER) | payer OTHER ==
[2024-03-03 03:55] LABS: #Basophils 0.06 10x3/uL (0.0-0.2); #Eosinophils 0.41 10x3/uL (0.0-0.5); #Monocytes 0.46 10x3/uL (0.0-1.1); #Neutrophils 3.37 10x3/uL (1.5-8.4); %Eosinophils 7.1 % (0.0-6.0); %Lymphocytes 24.9 % (18.0-47.0); %Neutrophils 58.3 % (40.0-75.0); Hematocrit 34.9 % (38.8-50.0); Hemoglobin 10.2 g/dL (13.5-17.5); Mean Corpuscular HGB CONC 29.2 g/dL (32.0-36.0); Mean Corpuscular Hemoglobin 22.2 pg (27.0-33.0); Mean Platelet Volume 9.8 fL (7.4-10.4); Platelet Count 249 10x3/uL (150-450); RBC Distribution Width 16.1 % (11.5-14.5); Red Blood Cell (RBC) Count 4.59 10x6/uL (4.32-5.72); White Blood Cell (WBC) Count 5.8 10x3/uL (3.5-10.5)
[2024-03-03 04:14] LABS: ALT (SGPT) 16 U/L (8-55); AST (SGOT) 11 U/L (5-34); Albumin 3.2 g/dL (3.4-4.8); Alkaline Phosphatase 115 U/L (40-110); Anion Gap 11 mmol/L (10-20); BUN (Urea Nitrogen) 27 mg/dL (8.4-25.7); Bilirubin, Total 0.2 mg/dL (0.2-1.2); Calc. Creatinine Clearance 0 mL/min (70-130); Calcium 9.8 mg/dL (7.8-10.44); Carbon Dioxide 21 mmol/L (23-31); Chloride 107 mmol/L (98-107); Estimated GFR 36; Globulin 4.5 g/dL (2.4-3.5); Glucose 246 mg/dL (80-115); Potassium 4.9 mmol/L (3.5-5.1); Protein, Total 7.7 g/dL (5.8-8.1); Sodium 134 mmol/L (136-145)
[2024-03-03 05:42] LABS: Troponin I 0.025 ng/mL (< 0.028)
== END 2024-03-03 06:18 | disposition home or self-care (01) ==
LOC: CSHERS 03:11
DX: R07.9 Chest pain, unspecified (principal); E11.22 Type 2 diabetes mellitus with diabetic chronic kidney disease; N18.30 Chronic kidney disease, stage 3 unspecified; I25.2 Old myocardial infarction; I48.91 Unspecified atrial fibrillation; Z87.891 Personal history of nicotine dependence
CPT/HCPCS: 36415; 71045; 80053; 84484; 85025; 93005; 94760; 96374

== ENCOUNTER 2024-03-10 10:29 | Emergency (ER) | payer OTHER, MEDICAID | END 2024-03-10 12:29 | disposition home or self-care (01) | LOC: CSHERS 10:29 | DX: N39.0 Urinary tract infection, site not specified (principal); B37.9 Candidiasis, unspecified; N18.30 Chronic kidney disease, stage 3 unspecified; E11.22 Type 2 diabetes mellitus with diabetic chronic kidney disease; Z87.891 Personal history of nicotine dependence | CPT/HCPCS: 99283 ==